=== PATIENT | male | born 1960 | race Caucasian/White ===

== ENCOUNTER 2017-03-22 21:07 | Inpatient (IN) | payer OTHER ==
[~2017-03-22] VITALS: Ht 172.7 cm; Wt 50.9 kg
[2017-03-22 21:07] VITALS: O2SAT 100
[2017-03-22] MEDS ORDERED: PROPOFOL 1000 MG/100 ML INJ 100 ML ONE (21:16)
[2017-03-22] MEDS ORDERED: ATROPINE SULFATE 1 MG/ML VIAL ONE (21:24)
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
[2017-03-22 21:30] LABS: I-STAT POTASSIUM 4.2 MMOL/L (3.5-4.9); I-STAT SODIUM 143 MMOL/L (138-146)
[2017-03-22 21:32] LABS: AUTOMATED NEUTROPHIL # 4.8 TH/MM3 (1.8-7.7); BASOPHIL % 0.6 % (0.0-2.0); EOSINOPHIL % 0.7 % (0.0-4.0); HEMATOCRIT 43.6 % (39.0-51.0); HEMO FLAGS DIFF FINAL; LYMPH % 25.3 % (9.0-44.0); LYMPHOCYTE # 1.8 TH/MM3 (1.0-4.8); MEAN CELL VOLUME 95.6 FL (80.0-100.0); MEAN CORPUSCULAR HEMOGLOBIN 32.2 PG (27.0-34.0); MEAN CORPUSCULAR HGB CONC 33.7 % (32.0-36.0); MONO % 8.1 % (0.0-8.0); NEUT % 65.3 % (16.0-70.0); PLATELET COUNT 116 TH/MM3 (150-450); RED BLOOD COUNT 4.56 MIL/MM3 (4.50-5.90); RED CELL DISTRIBUTION WIDTH 14.7 % (11.6-17.2); WHITE BLOOD COUNT 7.3 TH/MM3 (4.0-11.0)
[2017-03-22 21:40] VITALS: O2SAT 100
[2017-03-22 21:40] LABS: PROTHROMBIN TIME - PATIENT 11.6 SEC (9.8-11.6)
[2017-03-22] MEDS ORDERED: LIDOCAINE HCL 1% PF 2 ML VIAL ONE (21:48)
[2017-03-22 21:49] LABS: ALCOHOL LESS THAN 3 MG/DL (0-5)
[2017-03-22] MEDS ORDERED: IOHEXOL 350 MG/ML 10 ML VIAL (for RAD DIAG) IVCONTRAST ONE (21:55)
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
[2017-03-22] MEDS ORDERED: DIPHTH/TETANUS/ACEL PERTUSSIS (BOOSTER) 0.5 ML VIAL/PFS IM ONE (22:10)
[2017-03-22] MEDS ORDERED: ceFAZolin 2 GM PREMIX 50 ML IV STA (22:10)
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
[2017-03-22] MEDS ORDERED: SODIUM CHLOR 0.9% 1000 ML INJ 1,000 ML IV ONE (22:15)
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
[2017-03-22 22:37] VITALS: O2SAT 100
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
--- NOTE | 2017-03-22 22:44 | RADRPT ---
EXAM DATE/TIME: 03/22/2017 22:16 [facility] COMPARISON: No previous studies available for comparison. INDICATIONS : Post chest tube placement. MEDICAL HISTORY : None. SURGICAL HISTORY : None. ENCOUNTER: Initial ACUITY: 1 day PAIN SCORE: Non-responsive. LOCATION: Right chest FINDINGS: Right-sided chest tube present. No pneumothorax identified. Right lung apex is clipped. Multiple righ t rib fractures. No significant effusion. Endotracheal tube in satisfactory position. CONCLUSION: 1. Right chest tube present and no pneumothorax identified. Lung apices are clipped. Endotracheal tub e in satisfactory position. Tyson Multani MD on March 22, 2017 at 22:42 Board Certified Radiologist. This report was verified electronically.
[2017-03-22] MEDS ORDERED: MAGNESIUM HYDROXIDE SUSP 30 ML CUP PO PRN (22:45)
[2017-03-22] MEDS ORDERED: CHLORHEXIDINE GLUCONATE 2 % 1 PACK (2 CLOTHS) TOP PRN (22:45)
[2017-03-22] MEDS ORDERED: fentaNYL DRIP 250 ML IV PRN (22:45)
[2017-03-22] MEDS ORDERED: PROPOFOL 1000 MG/100 ML INJ 100 ML IV PRN (22:45)
[2017-03-22] MEDS ORDERED: MISCELLANEOUS NURSING INFORMATION XX SCH (22:45)
--- NOTE | 2017-03-22 22:56 | PD.PROCEDR ---
Procedure Note Procedure preop dx-complex open wound left supraorbital 8x1.5cm postop dx-same procedure- closure in layers left supraorbital area was sterilely prepped and draped.Wound closed in layers with 3-0 vicryl ,3-0 nylon and 4-0 nylon. Lashell Trevino MD Mar 22, 2017 22:56
[2017-03-22 23:00] VITALS: BP 175/70; PULSE 57; PULSE 63; RESP 16; TEMP 97.5; O2SAT 100
--- NOTE | 2017-03-22 23:00 | PD.OP ---
Operative Report PTX right Postoperative Diagnosis: PTX right Procedure: Right Chest tube thoracostomy Anesthesia: fentanyl;/propofol Surgeon: Lashell Trevino Sole Rounding Machine Operator(s): none Operation and Findings: Right CW sterilely prepped and draped.5th ICR incision placed-dissection to rib.Pleural space entered bluntly superior to rib.[address] inserted-secured to skin with 0-silk.CXR confirms good position. Lashell Trevino MD Mar 22, 2017 23:00
[2017-03-22 23:22] LABS: BLOOD GAS BASE EXCESS -6.1 mmol/L (-2-2); BLOOD GAS CARBOXYHEMOGLOBIN 1.7 % (0-4); BLOOD GAS HCO3 18 mmol/L (22-26); BLOOD GAS O2 HGB SATURATION 97 % (90-100); BLOOD GAS OXYGEN CONTENT 17.4 Vol % (12.0-20.0); BLOOD GAS PCO2 30 mmHg (38-42); BLOOD GAS PO2 227 mmHg (61-120); BLOOD GAS TOTAL HGB 12.4 G/DL (12.0-16.0); CRITICAL VALUE NO; OXYGEN DEVICE VENTILATOR; TEMP CORR TO 98.6
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
[2017-03-22 23:23] LABS: DRAW SITE LT RADIAL; FIO2 50 %; NUMBER OF ARTERIAL PUNCTURES 1; STAT YES; ULNAR PULSE PRESENT; VENT SETTINGS SEE COMMENTS
[2017-03-23] VITALS (29 sets, daily range): BP systolic 90–139; BP diastolic 49–79; PULSE 46–76; RESP 15–20; TEMP 95.5–99.3; O2SAT 100
[2017-03-23] MEDS: SODIUM CHLOR 0.9% 1000 ML INJ 1,000 ML IV SCH ×3 (00:31→19:00)
[2017-03-23] MEDS: fentaNYL 2,500 MCG/NS 250 ML IV PRN (01:06)
[2017-03-23] MEDS: PROPOFOL 1000 MG/100 ML IV PRN ×2 (03:41→16:00)
[2017-03-23] MEDS: CHLORHEXIDINE GLUCONATE 2 % 1 PACK (2 CLOTHS) TOP SCH (03:42)
[2017-03-23 05:51] LABS: AUTOMATED NEUTROPHIL # 10.4 TH/MM3 (1.8-7.7); BASOPHIL # 0.1 TH/MM3 (0-0.2); BASOPHIL % 0.4 % (0.0-2.0); EOSINOPHIL % 0.3 % (0.0-4.0); HEMATOCRIT 37.6 % (39.0-51.0); INTERNATIONAL NORMALIZED RATIO 1.1 RATIO; LYMPH % 8.9 % (9.0-44.0); LYMPHOCYTE # 1.1 TH/MM3 (1.0-4.8); MEAN CELL VOLUME 98.2 FL (80.0-100.0); MEAN CORPUSCULAR HEMOGLOBIN 31.7 PG (27.0-34.0); MEAN CORPUSCULAR HGB CONC 32.3 % (32.0-36.0); NEUT % 81.4 % (16.0-70.0); PLATELET COUNT 96 TH/MM3 (150-450); PROTHROMBIN TIME - PATIENT 11.9 SEC (9.8-11.6); RED BLOOD COUNT 3.82 MIL/MM3 (4.50-5.90); RED CELL DISTRIBUTION WIDTH 15.2 % (11.6-17.2); WHITE BLOOD COUNT 12.8 TH/MM3 (4.0-11.0)
[2017-03-23 06:01] LABS: HEMO FLAGS AUTO DIFF
[2017-03-23 06:08] LABS: BICARBONATE 20.9 MEQ/L (21.0-32.0); POTASSIUM 3.9 MEQ/L (3.5-5.1)
--- NOTE | 2017-03-23 06:18 | RADRPT ---
EXAM DATE/TIME: 03/23/2017 04:55 [facility] COMPARISON: CHEST SINGLE AP, March 22, 2017, 22:16. INDICATIONS : Shortness of breath. MEDICAL HISTORY : None. SURGICAL HISTORY : None. ENCOUNTER: Subsequent ACUITY: 2 days PAIN SCORE: Non-responsive. LOCATION: Bilateral chest FINDINGS: Stable ETT, suction type NGT, and right apical chest tube. No significant pneumothorax. Multiple righ t-sided rib fractures again noted. Cardiomediastinal are stable. Remainder of the exam is unchanged. CONCLUSION: 1. Stable ETT and NGT. 2. Stable right apical chest tube without significant pneumothorax. 3. No significant interval change. Rafy Estrada MD on March 23, 2017 at 6:15 Board Certified Radiologist. This report was verified electronically.
[2017-03-23] MEDS ORDERED: POTASSIUM PHOSPHATE MONOBASIC 500 MG TAB PO/TUBE PRN (07:00)
[2017-03-23] MEDS ORDERED: RESP: ALBUTEROL 2.5 MG/IPRATROPIUM 0.5 MG NEB (PRN) INH (07:00)
[2017-03-23] MEDS ORDERED: POTASSIUM CHLORIDE 25 MEQ EFFERVESCENT TAB PO PRN (07:00)
[2017-03-23] MEDS ORDERED: POTASSIUM PHOSPHATE INJ 30 MMOL in SODIUM CHLOR 0.9% 250 ML INJ 250 ML IV PRN (07:00)
[2017-03-23] MEDS ORDERED: MAGNESIUM SULFATE INJ 4 GM in SODIUM CHLORIDE 0.9% INJ 92 ML IV PRN (07:00)
[2017-03-23] MEDS ORDERED: POTASSIUM CHLOR 40 MEQ PREMIX 100 ML IV PRN ×2 (07:00)
[2017-03-23] MEDS ORDERED: SODIUM PHOSPHATE INJ 30 MMOL in SODIUM CHLOR 0.9% 250 ML INJ 240 ML IV PRN (07:00)
[2017-03-23] MEDS ORDERED: MAGNESIUM OXIDE 400 MG TAB PO PRN (07:00)
[2017-03-23] MEDS ORDERED: POTASSIUM PHOSPHATE MONOBASIC 500 MG TAB PO PRN (07:00)
[2017-03-23] MEDS ORDERED: MAGNESIUM SULFATE INJ 2 GM in SODIUM CHLORIDE 0.9% INJ 96 ML IV PRN (07:00)
[2017-03-23 08:14] LABS: SCAN/DIFF AUTO DIFF CONFIRMED
[2017-03-23] MEDS: PANTOPRAZOLE SODIUM 40 MG VIAL IV SCH (08:18)
[2017-03-23] MEDS: DOCUSATE SODIUM 50 MG/SENNA 8.6 MG TAB PO SCH ×2 (08:18→21:17)
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
[2017-03-23] MEDS: CHLORHEXIDINE 0.12% (ORAL KIT) 15 ML CUP MT SCH ×2 (08:58→20:52)
[2017-03-23] MEDS: RESP: ALBUTEROL 2.5 MG/IPRATROPIUM 0.5 MG NEB (SCH) INH ×3 (09:03→20:04)
[2017-03-23] MEDS ORDERED: SODIUM CHLOR 0.9% 1000 ML INJ 1,000 ML IV ONE (09:30)
[2017-03-23] MEDS: METHOCARBAMOL 500 MG TAB PO SCH ×3 (10:30→19:06)
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
[2017-03-23] MEDS: BACITRACIN TOP OINT 15 GM TUBE TOPICAL SCH ×2 (12:50→21:17)
--- NOTE | 2017-03-23 14:04 | HHI.CCPN ---
Subjective 24 Hour Review/Hospital Course 03/23 multiple rib fx right 1-7,ptx,left facial fx,left ear avulsion,right occipital contusion GCS 10 T,purposeful CXR stable cr 1.7 likely baseline-will keep hydrated repeat CT head pending Objective Vital Signs Date Time Temp Pulse Resp B/P (MAP) Pulse Ox O2 Delivery O2 Flow Rate FiO2 03/23/17 12:00 57 03/23/17 12:00 100 45 03/23/17 10:00 99.0 16 127/74 (91) 03/23/17 07:00 Mechanical Ventilator 03/22/17 21:07 15.00 Intake and Output 03/23/17 03/23/17 03/24/17 08:00 16:00 00:00 Intake Total 1467.6 ml 1000 ml Output Total 462 ml Balance 1005.6 ml 1000 ml Result Diagram: 03/23/17 0502 03/23/17 0502 Other Results Laboratory Tests Test 03/22/17 23:01 Blood Gas Puncture Site LT RADIAL Blood Gas Patient Temperature 98.6 Blood Gas HCO3 18 mmol/L (22-26) Blood Gas Base Excess -6.1 mmol/L (-2-2) Blood Gas Oxygen Saturation 97 % (90-100) Arterial Blood pH 7.40 (7.380-7.420) Arterial Blood Partial Pressure CO2 30 mmHg (38-42) Arterial Blood Partial Pressure O2 227 mmHg (61-120) Arterial Blood Oxygen Content 17.4 Vol % (12.0-20.0) Arterial Blood Carboxyhemoglobin 1.7 % (0-4) Arterial Blood Methemoglobin 1.0 % (0-2) Blood Gas Hemoglobin 12.4 G/DL (12.0-16.0) Oxygen Delivery Device VENTILATOR Blood Gas Ventilator Setting SEE COMMENTS Blood Gas Inspired Oxygen 50 % Imaging Last 24 hours Impressions Chest X-Ray 03/23/17 0000 Signed Impressions: Service Date/Time: Thursday, March 23, 2017 04:55 - CONCLUSION: 1. Stable ETT and NGT. 2. Stable right apical chest tube without significant pneumothorax. 3. No significant interval change. Rafy Estrada MD Thoracic Spine CT 03/22/172108 Signed Impressions: Service Date/Time: Wednesday, March 22, 2017 21:44 - CONCLUSION: 1. Negative for thoracic spine traumatic injury. Moderate degenerative disc disease. Tyson Multani MD Pelvis X-Ray 03/22/172108 Signed Impressions: Service Date/Time: Wednesday, March 22, 2017 21:00 - CONCLUSION: 1. No acute findings. Tyson Multani MD Maxillofacial CT 03/22/172108 Signed Impressions: Service Date/Time: Wednesday, March 22, 2017 21:32 - CONCLUSION: 1. Fractures of bilateral nasal bones, left superior orbit, left medial orbital wall with nasal septum with fluid or hemorrhage in the paranasal sinuses. Left frontal sinus fracture inferiorly. Tyson Multani MD Lumbar Spine CT 03/22/172108 Signed Impressions: Service Date/Time: Wednesday, March 22, 2017 21:44 - CONCLUSION: 1. No acute fracture. Mild to moderate degenerative disc disease as above. Tyson Multani MD Head CT 03/22/172108 Signed Impressions: Service Date/Time: Wednesday, March 22, 2017 21:32 - CONCLUSION: 1. Small amount of acute hemorrhage within an area of encephalomalacia in the right occipital lobe. Small bifrontal subdural hygromas with questionable trace acute hemorrhage in the left frontal subdural region. Tyson Multani MD Chest X-Ray 03/22/172108 Signed Impressions: Service Date/Time: Wednesday, March 22, 2017 21:00 - CONCLUSION: 1. Multiple right rib fractures with small right pneumothorax. Endotracheal tube in satisfactory position. Tyson Multani MD Chest CT 03/22/172108 Signed Impressions: Service Date/Time: Wednesday, March 22, 2017 21:44 - CONCLUSION: 1. Fractures of the right first through seventh ribs with a small to moderate right pneumothorax. Distal right clavicle fracture. Endotracheal tube in satisfactory position. Small right lung contusions. Negative traumatic aortic injury. Tyson Multani MD Cervical Spine CT 03/22/172108 Signed Impressions: Service Date/Time: Wednesday, March 22, 2017 21:32 - CONCLUSION: 1. Moderate degenerative change. No acute bony abnormalities. Right-sided pneumothorax. Tyson Multani MD Abdomen/Pelvis CT 03/22/172108 Signed Impressions: Service Date/Time: Wednesday, March 22, 2017 21:44 - CONCLUSION: 1. Right pneumothorax. No acute traumatic injury identified within the abdomen and pelvis. 2. 3.4 cm infrarenal abdominal aortic aneurysm. Tyson Multani MD Exam LUMBER STRAIGHTENED GCS 10 T Hemodynamic/Cardiac stable Pulmonary/Respiratory mechanical ventilation Abdomen/GI Nutrition soft Urinary Catheter Assessment Urinary Catheter: Yes Rodriguez insert reason: Measure Accurate Output Vascular Central Line Catheter Vascular Central Line Catheter: No Assessment and Plan Plan Start to wean mechanical ventilation start tube feeds mechanical DVT prophylaxis for now until occipital contusion stable OFMS consult for facial fractures pain control Lashell Trevino MD Mar 23, 2017 14:04
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
--- NOTE | 2017-03-23 18:18 | RADRPT ---
EXAM DATE/TIME: 03/23/2017 17:40 [facility] COMPARISON: CT BRAIN W/O CONTRAST, March 22, 2017, 21:32. INDICATIONS : Follow intracranial hemorrhage. RADIATION DOSE: 47.29 CTDIvol (mGy) MEDICAL HISTORY : Non-responsive. SURGICAL HISTORY : Non-responsive. ENCOUNTER: Subsequent ACUITY: 1 day PAIN SCALE: Non-responsive LOCATION: cranial TECHNIQUE: Multiple contiguous axial images were obtained of the head. Using automated exposure control and adj ustment of the mA and/or kV according to patient size, radiation dose was kept as low as reasonably a chievable to obtain optimal diagnostic quality images. DICOM format image data is available electro nically for review and comparison. FINDINGS: Compare March 22. There is a small amount hemorrhage in an area of encephalomalacia in the right p arietal occipital region. There is a new small 5 mm hemorrhage in the right parietal lobe. Bifrontal subdural hygromas are stable with questionable trace acute hemorrhage in the left frontal region. No mass effect or shift. Nasal bone fractures. CONCLUSION: 1. Small hemorrhage in right occipital region in area of encephalomalacia is stable. There is a new s mall 5 mm hemorrhage in the right parietal lobe also in within an area of encephalomalacia. Bifrontal subdural hygromas with trace hemorrhage on the left is stable. No new mass effect or shift. Tyson Multani MD on March 23, 2017 at 18:14 Board Certified Radiologist. This report was verified electronically.
[2017-03-23] MEDS ORDERED: DEXTROSE 50% IN WATER 50 ML SYRINGE ONE (20:14)
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
[2017-03-23] MEDS ORDERED: DEXTROSE 50% IN WATER 50 ML VIAL(D50) IV PRN (21:15)
[2017-03-23] MEDS ORDERED: GLUCAGON 1 MG/ML VIAL OTHER PRN (21:15)
[2017-03-24] VITALS (29 sets, daily range): BP systolic 97–136; BP diastolic 53–76; PULSE 54–82; RESP 15–16; TEMP 96.1–99.3; O2SAT 67–100
[2017-03-24] MEDS: PROPOFOL 1000 MG/100 ML IV PRN ×2 (00:37→20:33)
[2017-03-24] MEDS: SODIUM CHLOR 0.9% 1000 ML INJ 1,000 ML IV SCH ×4 (00:37→22:50)
[2017-03-24] MEDS: RESP: ALBUTEROL 2.5 MG/IPRATROPIUM 0.5 MG NEB (SCH) INH ×4 (01:21→19:36)
[2017-03-24] MEDS: METHOCARBAMOL 500 MG TAB PO SCH ×3 (01:34→17:32)
[2017-03-24] MEDS: CHLORHEXIDINE GLUCONATE 2 % 1 PACK (2 CLOTHS) TOP SCH (03:15)
[2017-03-24 04:05] LABS: AUTOMATED NEUTROPHIL # 5.3 TH/MM3 (1.8-7.7); BASOPHIL % 0.5 % (0.0-2.0); EOSINOPHIL # 0.1 TH/MM3 (0-0.4); EOSINOPHIL % 1.2 % (0.0-4.0); HEMATOCRIT 31.5 % (39.0-51.0); LYMPH % 9.1 % (9.0-44.0); LYMPHOCYTE # 0.6 TH/MM3 (1.0-4.8); MEAN CELL VOLUME 97.6 FL (80.0-100.0); MEAN CORPUSCULAR HEMOGLOBIN 32.7 PG (27.0-34.0); MEAN CORPUSCULAR HGB CONC 33.5 % (32.0-36.0); MONO % 9.6 % (0.0-8.0); NEUT % 79.6 % (16.0-70.0); PLATELET COUNT 67 TH/MM3 (150-450); RED BLOOD COUNT 3.22 MIL/MM3 (4.50-5.90); RED CELL DISTRIBUTION WIDTH 14.7 % (11.6-17.2); WHITE BLOOD COUNT 6.6 TH/MM3 (4.0-11.0)
[2017-03-24 04:09] LABS: HEMO FLAGS AUTO DIFF
[2017-03-24 04:43] LABS: ALKALINE PHOSPHATASE 49 U/L (45-117); ALT (GPT) 19 U/L (12-78); ANION GAP 5 MEQ/L (5-15); AST (GOT) 23 U/L (15-37); BICARBONATE 24.4 MEQ/L (21.0-32.0); BLOOD UREA NITROGEN 33 MG/DL (7-18); CHLORIDE 117 MEQ/L (98-107); GLOMERULAR FILTRATION RATE 66 ML/MIN (>89); POTASSIUM 3.6 MEQ/L (3.5-5.1); SODIUM (NA) 146 MEQ/L (136-145); TOTAL BILIRUBIN ADULT 0.2 MG/DL (0.2-1.0)
--- NOTE | 2017-03-24 04:53 | RADRPT ---
EXAM DATE/TIME: 03/24/2017 03:52 [facility] COMPARISON: CHEST SINGLE AP, March 23, 2017, 4:55. INDICATIONS : Short of breath. MEDICAL HISTORY : None. SURGICAL HISTORY : None. ENCOUNTER: Subsequent ACUITY: 2 days PAIN SCORE: Non-responsive. LOCATION: Bilateral chest FINDINGS: Stable ETT, NGT, and right sided chest tube. Multiple right-sided rib fractures again noted. No signi ficant pneumothorax. No significant focal pleural or parenchymal opacities. Cardiomegaly some contour s are within normal limits. CONCLUSION: 1. Stable ETT and NGT. 2. Stable right apical chest tube without significant pneumothorax. 3. No significant interval change. Rafy Estrada MD on March 24, 2017 at 4:49 Board Certified Radiologist. This report was verified electronically.
[2017-03-24 05:30] LABS: BLOOD GAS BASE EXCESS -3.3 mmol/L (-2-2); BLOOD GAS CARBOXYHEMOGLOBIN 0.8 % (0-4); BLOOD GAS HCO3 22 mmol/L (22-26); BLOOD GAS METHEMOGLOBIN 1.1 % (0-2); BLOOD GAS O2 HGB SATURATION 97 % (90-100); BLOOD GAS OXYGEN CONTENT 14.1 Vol % (12.0-20.0); BLOOD GAS PCO2 45 mmHg (38-42); BLOOD GAS PO2 145 mmHg (61-120); BLOOD GAS TOTAL HGB 10.1 G/DL (12.0-16.0); CRITICAL VALUE NO; DRAW SITE RT FEMORAL; FIO2 30 %; NUMBER OF ARTERIAL PUNCTURES 1; OXYGEN DEVICE VENTILATOR; STAT NO; TEMP CORR TO 98.6; VENT SETTINGS PRVC/AC
[2017-03-24] MEDS: INSULIN NovoLIN REGULAR SUPPLEMENTAL SCALE SQ SCH ×4 (06:05→21:00)
[2017-03-24 06:08] LABS: PLATELET ESTIMATE SMEAR LOW (NORMAL); PLATELET MORPHOLOGY NORMAL (NORMAL); SCAN/DIFF AUTO DIFF CONFIRMED
[2017-03-24] MEDS: CHLORHEXIDINE 0.12% (ORAL KIT) 15 ML CUP MT SCH ×2 (08:56→20:34)
[2017-03-24] MEDS: PANTOPRAZOLE SODIUM 40 MG VIAL IV SCH (09:00)
[2017-03-24] MEDS: BACITRACIN TOP OINT 15 GM TUBE TOPICAL SCH ×2 (09:01→20:33)
[2017-03-24] MEDS: DOCUSATE SODIUM 50 MG/SENNA 8.6 MG TAB PO SCH ×2 (09:01→20:34)
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
[2017-03-24] MEDS ORDERED: SODIUM CHLOR 0.9% 1000 ML INJ 1,000 ML IV ONE (10:00)
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
--- NOTE | 2017-03-24 12:41 | EKG ---
Date Performed: 03/24/2017 Time Performed: 10:46:01 PTAGE: 56 years EKG: Sinus rhythm NO PREVIOUS TRACING DOCTOR: Louie Mays Interpretating Date/Time 03/24/2017 12:39:43
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
[2017-03-24] MEDS: fentaNYL 2,500 MCG/NS 250 ML IV PRN (16:51)
[2017-03-25] VITALS (19 sets, daily range): BP systolic 89–99; BP diastolic 49–59; PULSE 72–90; RESP 15–18; TEMP 98.6–99.5; O2SAT 98–100
[2017-03-25] MEDS: METHOCARBAMOL 500 MG TAB PO SCH ×3 (00:10→17:19)
[2017-03-25] MEDS: RESP: ALBUTEROL 2.5 MG/IPRATROPIUM 0.5 MG NEB (SCH) INH ×4 (00:54→20:14)
[2017-03-25] MEDS: PROPOFOL 1000 MG/100 ML IV PRN ×2 (01:59→20:18)
[2017-03-25] MEDS: CHLORHEXIDINE GLUCONATE 2 % 1 PACK (2 CLOTHS) TOP SCH (04:00)
[2017-03-25 04:51] LABS: BLOOD GAS BASE EXCESS -1.4 mmol/L (-2-2); BLOOD GAS CARBOXYHEMOGLOBIN 0.8 % (0-4); BLOOD GAS HCO3 24 mmol/L (22-26); BLOOD GAS O2 HGB SATURATION 96 % (90-100); BLOOD GAS OXYGEN CONTENT 12.6 Vol % (12.0-20.0); BLOOD GAS PCO2 53 mmHg (38-42); BLOOD GAS PO2 106 mmHg (61-120); BLOOD GAS TOTAL HGB 9.2 G/DL (12.0-16.0); TEMP CORR TO 98.6
[2017-03-25 04:52] LABS: CRITICAL VALUE YES; OXYGEN DEVICE VENTILATOR
[2017-03-25 04:53] LABS: DRAW SITE RT FEMORAL; FIO2 30 %; NUMBER OF ARTERIAL PUNCTURES 1; STAT NO
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
[2017-03-25 05:55] LABS: AUTOMATED NEUTROPHIL # 5.7 TH/MM3 (1.8-7.7); BASOPHIL % 0.3 % (0.0-2.0); EOSINOPHIL # 0.1 TH/MM3 (0-0.4); EOSINOPHIL % 1.5 % (0.0-4.0); HEMATOCRIT 29.6 % (39.0-51.0); LYMPH % 10.7 % (9.0-44.0); LYMPHOCYTE # 0.8 TH/MM3 (1.0-4.8); MEAN CELL VOLUME 99.4 FL (80.0-100.0); MEAN CORPUSCULAR HEMOGLOBIN 32.5 PG (27.0-34.0); MEAN CORPUSCULAR HGB CONC 32.7 % (32.0-36.0); MONO % 8.6 % (0.0-8.0); NEUT % 78.9 % (16.0-70.0); PLATELET COUNT 61 TH/MM3 (150-450); RED BLOOD COUNT 2.98 MIL/MM3 (4.50-5.90); RED CELL DISTRIBUTION WIDTH 15.3 % (11.6-17.2); WHITE BLOOD COUNT 7.2 TH/MM3 (4.0-11.0)
[2017-03-25 06:00] LABS: HEMO FLAGS AUTO DIFF
[2017-03-25 06:22] LABS: ALKALINE PHOSPHATASE 51 U/L (45-117); ALT (GPT) 13 U/L (12-78); ANION GAP 5 MEQ/L (5-15); AST (GOT) 22 U/L (15-37); BICARBONATE 26.7 MEQ/L (21.0-32.0); BLOOD UREA NITROGEN 19 MG/DL (7-18); CHLORIDE 116 MEQ/L (98-107); GLOMERULAR FILTRATION RATE 109 ML/MIN (>89); POTASSIUM 3.7 MEQ/L (3.5-5.1); SODIUM (NA) 148 MEQ/L (136-145); TOTAL BILIRUBIN ADULT 0.2 MG/DL (0.2-1.0)
[2017-03-25] MEDS: INSULIN NovoLIN REGULAR SUPPLEMENTAL SCALE SQ SCH ×4 (06:23→21:00)
[2017-03-25 07:04] LABS: PLATELET ESTIMATE SMEAR LOW (NORMAL); PLATELET MORPHOLOGY NORMAL (NORMAL); SCAN/DIFF AUTO DIFF CONFIRMED
[2017-03-25] MEDS: CHLORHEXIDINE 0.12% (ORAL KIT) 15 ML CUP MT SCH ×2 (08:00→20:18)
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
[2017-03-25] MEDS: BACITRACIN TOP OINT 15 GM TUBE TOPICAL SCH ×2 (09:00→23:24)
[2017-03-25] MEDS: DOCUSATE SODIUM 50 MG/SENNA 8.6 MG TAB PO SCH ×2 (09:26→20:18)
[2017-03-25] MEDS: LACTULOSE SYRUP 20 GM/30 ML CUP PO SCH (09:26)
[2017-03-25] MEDS: PANTOPRAZOLE SODIUM 40 MG VIAL IV SCH (09:26)
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
[2017-03-25] MEDS: SODIUM CHLOR 0.9% 1000 ML INJ 1,000 ML IV SCH ×2 (11:00→20:18)
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
--- NOTE | 2017-03-25 12:34 | RADRPT ---
EXAM DATE/TIME: 03/25/2017 11:36 [facility] COMPARISON: No previous studies available for comparison. INDICATIONS : Right hand pain. MEDICAL HISTORY : None. SURGICAL HISTORY : None. ENCOUNTER: Initial ACUITY: 3 days PAIN SCORE: Non-responsive. LOCATION: Left hand FINDINGS: No definite fractures, or dislocations are identified. No definite lytic or sclerotic lesion is seen . CONCLUSION: Unremarkable study. Matthew Eaton MD on March 25, 2017 at 12:32 Board Certified Radiologist. This report was verified electronically.
[2017-03-25] MEDS: fentaNYL 2,500 MCG/NS 250 ML IV PRN (13:04)
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
[2017-03-25] MEDS: QUEtiapine FUMARATE 100 MG TAB PO SCH (14:49)
[2017-03-26] VITALS (17 sets, daily range): BP systolic 85–114; BP diastolic 52–71; PULSE 79–94; RESP 18; TEMP 98.9–99.7; O2SAT 96–100
[2017-03-26] MEDS: METHOCARBAMOL 500 MG TAB PO SCH ×3 (01:22→19:42)
[2017-03-26] MEDS: RESP: ALBUTEROL 2.5 MG/IPRATROPIUM 0.5 MG NEB (SCH) INH ×4 (03:36→20:00)
[2017-03-26] MEDS: CHLORHEXIDINE GLUCONATE 2 % 1 PACK (2 CLOTHS) TOP SCH (04:00)
[2017-03-26] MEDS: PROPOFOL 1000 MG/100 ML IV PRN (04:41)
[2017-03-26] MEDS: fentaNYL 2,500 MCG/NS 250 ML IV PRN ×2 (04:41→19:42)
[2017-03-26] MEDS: SODIUM CHLOR 0.9% 1000 ML INJ 1,000 ML IV SCH ×2 (04:41→14:40)
[2017-03-26 05:02] LABS: BLOOD GAS BASE EXCESS 0.9 mmol/L (-2-2); BLOOD GAS CARBOXYHEMOGLOBIN 1.4 % (0-4); BLOOD GAS HCO3 26 mmol/L (22-26); BLOOD GAS METHEMOGLOBIN 0.8 % (0-2); BLOOD GAS O2 HGB SATURATION 94 % (90-100); BLOOD GAS OXYGEN CONTENT 12.8 Vol % (12.0-20.0); BLOOD GAS PCO2 49 mmHg (38-42); BLOOD GAS PO2 77 mmHg (61-120); BLOOD GAS TOTAL HGB 9.6 G/DL (12.0-16.0); CRITICAL VALUE NO; DRAW SITE RT RADIAL; FIO2 30 %; NUMBER OF ARTERIAL PUNCTURES 1; OXYGEN DEVICE VENTILATOR; STAT NO; TEMP CORR TO 98.6; ULNAR PULSE PRESENT; VENT SETTINGS PRVC18/500/1.0/+5
--- NOTE | 2017-03-26 05:16 | RADRPT ---
EXAM DATE/TIME: 03/26/2017 04:19 [facility] COMPARISON: CHEST SINGLE AP, March 25, 2017, 3:58. INDICATIONS : Short of breath. MEDICAL HISTORY : None. SURGICAL HISTORY : None. ENCOUNTER: Subsequent ACUITY: 4 - 6 days PAIN SCORE: Non-responsive. LOCATION: Bilateral chest FINDINGS: Rib fractures and a chest tube again seen on the right. A tiny apical pneumothorax can be seen. Study was obtained supine. Very mild left base infiltrate developing. I don't see a pleural effusion. No left pneumothorax. Heart size stable, within normal limits. Endotracheal tube tip is approximately 3.5 cm above the brent. There is a nasogastric tube with tip in the stomach. CONCLUSION: 1. Mild left base consolidation developing. 2. Tiny right apical pneumothorax. Rib fractures and a right chest tube are again noted. Tobi Chinchilla MD on March 26, 2017 at 5:13 Board Certified Radiologist. This report was verified electronically.
[2017-03-26 05:26] LABS: AUTOMATED NEUTROPHIL # 6.8 TH/MM3 (1.8-7.7); BASOPHIL % 0.6 % (0.0-2.0); EOSINOPHIL # 0.2 TH/MM3 (0-0.4); EOSINOPHIL % 2.5 % (0.0-4.0); HEMATOCRIT 33.1 % (39.0-51.0); LYMPH % 9.6 % (9.0-44.0); LYMPHOCYTE # 0.8 TH/MM3 (1.0-4.8); MEAN CORPUSCULAR HEMOGLOBIN 32.2 PG (27.0-34.0); MEAN CORPUSCULAR HGB CONC 32.2 % (32.0-36.0); MONO % 7.7 % (0.0-8.0); NEUT % 79.6 % (16.0-70.0); PLATELET COUNT 76 TH/MM3 (150-450); RED BLOOD COUNT 3.31 MIL/MM3 (4.50-5.90); RED CELL DISTRIBUTION WIDTH 15.2 % (11.6-17.2); WHITE BLOOD COUNT 8.6 TH/MM3 (4.0-11.0)
[2017-03-26 05:54] LABS: ANION GAP 7 MEQ/L (5-15); AST (GOT) 18 U/L (15-37); BICARBONATE 23.9 MEQ/L (21.0-32.0); BLOOD UREA NITROGEN 13 MG/DL (7-18); CHLORIDE 117 MEQ/L (98-107); GLOMERULAR FILTRATION RATE 129 ML/MIN (>89); SODIUM (NA) 148 MEQ/L (136-145)
[2017-03-26 05:57] LABS: ALKALINE PHOSPHATASE 53 U/L (45-117); ALT (GPT) 12 U/L (12-78); TOTAL BILIRUBIN ADULT 0.5 MG/DL (0.2-1.0)
[2017-03-26 06:30] LABS: HEMO FLAGS AUTO DIFF
[2017-03-26] MEDS: INSULIN NovoLIN REGULAR SUPPLEMENTAL SCALE SQ SCH ×4 (07:00→21:00)
[2017-03-26] MEDS ORDERED: BISACODYL 10 MG SUPP RECTAL ONE (07:45)
[2017-03-26 08:28] LABS: PLATELET ESTIMATE SMEAR LOW (NORMAL); PLATELET MORPHOLOGY NORMAL (NORMAL)
[2017-03-26 08:29] LABS: SCAN/DIFF AUTO DIFF CONFIRMED
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
[2017-03-26] MEDS: PANTOPRAZOLE SODIUM 40 MG VIAL IV SCH (09:47)
[2017-03-26] MEDS: DOCUSATE SODIUM 50 MG/SENNA 8.6 MG TAB PO SCH ×2 (09:47→19:42)
[2017-03-26] MEDS: QUEtiapine FUMARATE 100 MG TAB PO SCH (09:47)
[2017-03-26] MEDS: MAGNESIUM HYDROXIDE SUSP 30 ML CUP PO SCH ×2 (09:47→19:42)
[2017-03-26] MEDS: LACTULOSE SYRUP 20 GM/30 ML CUP PO SCH (09:47)
[2017-03-26] MEDS: CHLORHEXIDINE 0.12% (ORAL KIT) 15 ML CUP MT SCH ×2 (09:48→19:42)
[2017-03-26] MEDS: DEXTROSE 50% IN WATER 50 ML SYRINGE IV PRN (11:09)
[2017-03-26] MEDS: BACITRACIN TOP OINT 15 GM TUBE TOPICAL SCH ×2 (11:14→21:28)
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
--- NOTE | 2017-03-26 13:54 | RADRPT ---
EXAM DATE/TIME: 03/26/2017 13:03 [facility] COMPARISON: No previous studies available for comparison. INDICATIONS : Left elbow pain. MEDICAL HISTORY : None. SURGICAL HISTORY : None. ENCOUNTER: Subsequent ACUITY: 4 - 6 days PAIN SCORE: Non-responsive. LOCATION: Left Elbow FINDINGS: 3 views left elbow. Bone alignment within normal limits. 1.3 cm ossicle is seen anteriorly on the lat eral view no definite joint effusion. Evaluation for joint narrowing is limited due to the obliquity of the views. CONCLUSION: 1.3 cm ossicle seen anteriorly at the elbow. This finding is nonspecific and could represent arthriti c change or age-indeterminate fracture. Alignment within normal limits. Sensitivity and specificity o f the examination is decreased due to the oblique/non-standard views. Solomon Cardenas MD on March 26, 2017 at 13:47 Board Certified Radiologist. This report was verified electronically.
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
[2017-03-27] VITALS (18 sets, daily range): BP systolic 102–145; BP diastolic 51–72; PULSE 82–116; RESP 5–22; TEMP 99–99.9; O2SAT 96–100
[2017-03-27] MEDS: METHOCARBAMOL 500 MG TAB PO SCH ×3 (00:28→18:00)
[2017-03-27] MEDS: SODIUM CHLOR 0.9% 1000 ML INJ 1,000 ML IV SCH ×2 (00:29→09:30)
[2017-03-27] MEDS: DEXTROSE 50% IN WATER 50 ML SYRINGE IV PRN (02:30)
[2017-03-27] MEDS: RESP: ALBUTEROL 2.5 MG/IPRATROPIUM 0.5 MG NEB (SCH) INH ×5 (03:53→19:59)
[2017-03-27] MEDS: CHLORHEXIDINE GLUCONATE 2 % 1 PACK (2 CLOTHS) TOP SCH (04:00)
--- NOTE | 2017-03-27 04:33 | RADRPT ---
EXAM DATE/TIME: 03/27/2017 03:32 [facility] COMPARISON: CHEST SINGLE AP, March 26, 2017, 4:19. INDICATIONS : Shortness of breath. MEDICAL HISTORY : None. SURGICAL HISTORY : None. ENCOUNTER: Subsequent ACUITY: 4 - 6 days PAIN SCORE: Non-responsive. LOCATION: Bilateral chest FINDINGS: Bibasilar consolidation seen, new on the right and modestly worse on the left. No large effusion. Rig ht chest tube remains in place. No perceptible pneumothorax today. Endotracheal tube tip is approximately 3 cm above the brent. Nasogastric tube is coiled in the stoma ch. Right rib fractures are again noted. CONCLUSION: 1. Bibasilar airspace opacities, both sides slightly worse in the interim. 2. Right rib fractures with a chest tube again noted. No perceptible pneumothorax. Tobi Chinchilla MD on March 27, 2017 at 4:29 Board Certified Radiologist. This report was verified electronically.
[2017-03-27 05:57] LABS: BLOOD GAS BASE EXCESS 1.6 mmol/L (-2-2); BLOOD GAS CARBOXYHEMOGLOBIN 1.6 % (0-4); BLOOD GAS HCO3 27 mmol/L (22-26); BLOOD GAS METHEMOGLOBIN 0.9 % (0-2); BLOOD GAS O2 HGB SATURATION 94 % (90-100); BLOOD GAS OXYGEN CONTENT 13.1 Vol % (12.0-20.0); BLOOD GAS PCO2 48 mmHg (38-42); BLOOD GAS PO2 86 mmHg (61-120); BLOOD GAS TOTAL HGB 9.8 G/DL (12.0-16.0); CRITICAL VALUE NO; DRAW SITE RT RADIAL; FIO2 30 %; NUMBER OF ARTERIAL PUNCTURES 1; OXYGEN DEVICE VENTILATOR; STAT NO; TEMP CORR TO 98.6; ULNAR PULSE PRESENT; VENT SETTINGS CPAP/5/+5
[2017-03-27 07:26] LABS: AUTOMATED NEUTROPHIL # 5.4 TH/MM3 (1.8-7.7); BASOPHIL % 0.3 % (0.0-2.0); EOSINOPHIL # 0.1 TH/MM3 (0-0.4); EOSINOPHIL % 1.6 % (0.0-4.0); HEMATOCRIT 31.8 % (39.0-51.0); LYMPH % 5.3 % (9.0-44.0); LYMPHOCYTE # 0.3 TH/MM3 (1.0-4.8); MEAN CELL VOLUME 98.2 FL (80.0-100.0); MEAN CORPUSCULAR HEMOGLOBIN 31.8 PG (27.0-34.0); MEAN CORPUSCULAR HGB CONC 32.3 % (32.0-36.0); MONO % 10.1 % (0.0-8.0); NEUT % 82.7 % (16.0-70.0); PLATELET COUNT 80 TH/MM3 (150-450); RED BLOOD COUNT 3.23 MIL/MM3 (4.50-5.90); RED CELL DISTRIBUTION WIDTH 14.7 % (11.6-17.2); WHITE BLOOD COUNT 6.5 TH/MM3 (4.0-11.0)
[2017-03-27 07:35] LABS: HEMO FLAGS AUTO DIFF
[2017-03-27 07:58] LABS: BICARBONATE 27.2 MEQ/L (21.0-32.0); CALCIUM-PROTEIN CORRECTED 8.1 MG/DL (8.5-10.1); POTASSIUM 3.9 MEQ/L (3.5-5.1); TOTAL BILIRUBIN ADULT 0.5 MG/DL (0.2-1.0)
[2017-03-27] MEDS: CHLORHEXIDINE 0.12% (ORAL KIT) 15 ML CUP MT SCH ×2 (08:00→21:40)
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
[2017-03-27] MEDS: QUEtiapine FUMARATE 100 MG TAB PO SCH (08:44)
[2017-03-27] MEDS: LACTULOSE SYRUP 20 GM/30 ML CUP PO SCH (08:44)
[2017-03-27] MEDS: PANTOPRAZOLE SODIUM 40 MG VIAL IV SCH (08:44)
[2017-03-27] MEDS: MAGNESIUM HYDROXIDE SUSP 30 ML CUP PO SCH ×2 (08:44→20:00)
[2017-03-27] MEDS: DOCUSATE SODIUM 50 MG/SENNA 8.6 MG TAB PO SCH ×2 (08:44→21:39)
[2017-03-27] MEDS: BACITRACIN TOP OINT 15 GM TUBE TOPICAL SCH ×2 (08:45→21:39)
[2017-03-27] MEDS: fentaNYL 2,500 MCG/NS 250 ML IV PRN (09:30)
[2017-03-27] MEDS: ARTIFICIAL TEARS OPTH SOLN 15 ML BTL EACH EYE SCH ×2 (10:00→18:00)
[2017-03-27] MEDS ORDERED: fentaNYL DRIP 250 ML IV PRN (10:15)
[2017-03-27 10:20] LABS: BANDS 45 % (0-6); BASOPHILS 1 % (0-2); NEUTROPHIL # MANUAL DIFF 5.9 TH/MM3 (1.8-7.7); POLYS (SEG NEUTROPHILS) 45 % (16-70); WBC DIFF SAMPLE 100
[2017-03-27 10:21] LABS: PLATELET ESTIMATE SMEAR LOW (NORMAL); PLATELET MORPHOLOGY ENLARGED (NORMAL); SCAN/DIFF FINAL DIFF MANUAL
[2017-03-27 10:43] LABS: BLOOD GAS BASE EXCESS 1.4 mmol/L (-2-2); BLOOD GAS CARBOXYHEMOGLOBIN 1.7 % (0-4); BLOOD GAS HCO3 27 mmol/L (22-26); BLOOD GAS O2 HGB SATURATION 95 % (90-100); BLOOD GAS OXYGEN CONTENT 13.7 Vol % (12.0-20.0); BLOOD GAS PCO2 55 mmHg (38-42); BLOOD GAS PO2 96 mmHg (61-120); BLOOD GAS TOTAL HGB 10.2 G/DL (12.0-16.0); TEMP CORR TO 98.6
[2017-03-27 10:45] LABS: CRITICAL VALUE YES; DRAW SITE RT RADIAL; FIO2 30 %; NUMBER OF ARTERIAL PUNCTURES 1; OXYGEN DEVICE VENTILATOR; STAT NO; ULNAR PULSE PRESENT; VENT SETTINGS PEEP5/PS5
[2017-03-27] MEDS: INSULIN NovoLIN REGULAR SUPPLEMENTAL SCALE SQ SCH ×3 (12:00→22:30)
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
--- NOTE | 2017-03-27 21:37 | RADRPT ---
EXAM DATE/TIME: 03/27/2017 21:11 [facility] COMPARISON: CHEST SINGLE AP, March 27, 2017, 3:32. INDICATIONS : Shortness of breath. MEDICAL HISTORY : None. SURGICAL HISTORY : None. ENCOUNTER: Subsequent ACUITY: 4 - 6 days PAIN SCORE: Non-responsive. LOCATION: Right chest FINDINGS: A single view of the chest demonstrates interval removal of a right thoracostomy tube. Lung remains e xpanded without significant pneumothorax. Significant bilateral airspace disease with interval progression is noted. Endotracheal and nasogastric tubes remain in satisfactory position. Heart and mediastinum are stable. Multiple right rib fractures are again noted. CONCLUSION: 1. Status post removal of right chest tube without persistent or recurrent pneumothorax. 2. Increasing bilateral consolidating infiltrate. 3. Stable position of support devices. Maxi Peng MD on March 27, 2017 at 21:32 Board Certified Radiologist. This report was verified electronically.
[2017-03-27] MEDS: DEXMEDETOMIDINE 200 MCG in NS 48 ML IV PRN (22:39)
[2017-03-28] VITALS (19 sets, daily range): BP systolic 85–146; BP diastolic 49–82; PULSE 72–116; RESP 7–20; TEMP 99.7–100.9; O2SAT 91–98
[2017-03-28] MEDS: METHOCARBAMOL 500 MG TAB PO SCH ×3 (02:14→18:00)
[2017-03-28] MEDS: CHLORHEXIDINE GLUCONATE 2 % 1 PACK (2 CLOTHS) TOP SCH (02:15)
[2017-03-28] MEDS: ARTIFICIAL TEARS OPTH SOLN 15 ML BTL EACH EYE SCH ×3 (03:33→18:00)
[2017-03-28] MEDS: RESP: ALBUTEROL 2.5 MG/IPRATROPIUM 0.5 MG NEB (SCH) INH ×4 (03:51→19:34)
[2017-03-28] MEDS: DEXMEDETOMIDINE 200 MCG in NS 48 ML IV PRN ×6 (03:53→22:41)
[2017-03-28 04:40] LABS: BLOOD GAS BASE EXCESS 2.8 mmol/L (-2-2); BLOOD GAS CARBOXYHEMOGLOBIN 1.3 % (0-4); BLOOD GAS HCO3 28 mmol/L (22-26); BLOOD GAS METHEMOGLOBIN 0.6 % (0-2); BLOOD GAS O2 HGB SATURATION 96 % (90-100); BLOOD GAS PCO2 48 mmHg (38-42); BLOOD GAS PO2 100 mmHg (61-120); BLOOD GAS TOTAL HGB 8.8 G/DL (12.0-16.0); CRITICAL VALUE NO; DRAW SITE RT RADIAL; FIO2 50 %; NUMBER OF ARTERIAL PUNCTURES 1; OXYGEN DEVICE VENTILATOR; STAT NO; TEMP CORR TO 98.6; ULNAR PULSE PRESENT; VENT SETTINGS PRVC18/500/1.0/+8
[2017-03-28] MEDS: INSULIN NovoLIN REGULAR SUPPLEMENTAL SCALE SQ SCH ×3 (06:00→18:00)
--- NOTE | 2017-03-28 06:02 | RADRPT ---
EXAM DATE/TIME: 03/28/2017 04:12 [facility] COMPARISON: No previous studies available for comparison. INDICATIONS : Shortness of breath, possible pulmonary disease. MEDICAL HISTORY : None. SURGICAL HISTORY : None. ENCOUNTER: Subsequent ACUITY: 1 week PAIN SCORE: Non-responsive. LOCATION: Bilateral chest FINDINGS: A single view of the chest demonstrates endotracheal tube tip ends at this position. NG coiled in sto mach. Ilateral mostly basilar airspace consolidation similar to prior exam. Trace pleural fluid. No p neumothorax. Stable right sided rib fractures. CONCLUSION: 1. Relatively stable bilateral mostly basilar airspace consolidation the lungs since March 27. En dotracheal tube and nasogastric tube unchanged. Tyson Multani MD on March 28, 2017 at 5:59 Board Certified Radiologist. This report was verified electronically.
[2017-03-28 06:09] LABS: AST (GOT) 14 U/L (15-37); AUTOMATED NEUTROPHIL # 2.8 TH/MM3 (1.8-7.7); BASOPHIL % 0.3 % (0.0-2.0); CHLORIDE 113 MEQ/L (98-107); EOSINOPHIL % 0.2 % (0.0-4.0); GLOMERULAR FILTRATION RATE 161 ML/MIN (>89); HEMATOCRIT 29.5 % (39.0-51.0); LYMPH % 6.5 % (9.0-44.0); LYMPHOCYTE # 0.2 TH/MM3 (1.0-4.8); MEAN CELL VOLUME 98.4 FL (80.0-100.0); MEAN CORPUSCULAR HEMOGLOBIN 32.1 PG (27.0-34.0); MEAN CORPUSCULAR HGB CONC 32.6 % (32.0-36.0); PLATELET COUNT 61 TH/MM3 (150-450); POTASSIUM 3.9 MEQ/L (3.5-5.1); RED CELL DISTRIBUTION WIDTH 14.4 % (11.6-17.2); SODIUM (NA) 147 MEQ/L (136-145); WHITE BLOOD COUNT 3.4 TH/MM3 (4.0-11.0)
[2017-03-28 06:18] LABS: HEMO FLAGS AUTO DIFF
[2017-03-28 06:59] LABS: ALKALINE PHOSPHATASE 59 U/L (45-117); ALT (GPT) 10 U/L (12-78); ANION GAP 6 MEQ/L (5-15); BICARBONATE 27.9 MEQ/L (21.0-32.0); BLOOD UREA NITROGEN 16 MG/DL (7-18); TOTAL BILIRUBIN ADULT 0.5 MG/DL (0.2-1.0)
[2017-03-28] MEDS: DOCUSATE SODIUM 50 MG/SENNA 8.6 MG TAB PO SCH ×2 (07:28→19:30)
[2017-03-28] MEDS: PANTOPRAZOLE SODIUM 40 MG VIAL IV SCH (07:28)
[2017-03-28] MEDS: QUEtiapine FUMARATE 100 MG TAB PO SCH (07:28)
[2017-03-28] MEDS: CHLORHEXIDINE 0.12% (ORAL KIT) 15 ML CUP MT SCH ×2 (07:29→19:29)
[2017-03-28] MEDS: BACITRACIN TOP OINT 15 GM TUBE TOPICAL SCH ×2 (07:29→19:30)
[2017-03-28] MEDS: LACTULOSE SYRUP 20 GM/30 ML CUP PO SCH (07:29)
[2017-03-28] MEDS: MAGNESIUM HYDROXIDE SUSP 30 ML CUP PO SCH ×2 (07:29→19:29)
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
[2017-03-28] MEDS ORDERED: ACETAMINOPHEN 325 MG TAB PO PRN (09:45)
[2017-03-28] MEDS ORDERED: Vancomycin Consult Pharmacy 1 EA OTHER PRN (09:45)
[2017-03-28] MEDS ORDERED: fentaNYL 50 MCG/HR PATCH T-DERMAL SCH ×2 (09:45→11:00)
[2017-03-28] MEDS: PIPERACIL-TAZO 3.375 GM PREMIX 50 ML IV SCH ×2 (10:39→18:00)
[2017-03-28 10:52] LABS: BANDS 45 % (0-6); NEUTROPHIL # MANUAL DIFF 2.7 TH/MM3 (1.8-7.7); POLYS (SEG NEUTROPHILS) 34 % (16-70); TOXIC GRANULATION 1+ (NORMAL); TOXIC VACUOLATION PRESENT (NONE SEEN); WBC DIFF SAMPLE 100
[2017-03-28 10:53] LABS: PLATELET ESTIMATE SMEAR LOW (NORMAL); PLATELET MORPHOLOGY NORMAL (NORMAL); SCAN/DIFF FINAL DIFF MANUAL
[2017-03-28] MEDS ORDERED: VANCOMYCIN INJ 1,000 MG in SODIUM CHLOR 0.9% 250 ML INJ 250 ML IV SCH (11:00)
[2017-03-28] MEDS ORDERED: fentaNYL 75 MCG/HR PATCH T-DERMAL SCH (11:00)
[2017-03-28] MEDS ORDERED: fentaNYL 100 MCG/HR PATCH T-DERMAL SCH (11:00)
[2017-03-28] MEDS ORDERED: fentaNYL 25 MCG/HR PATCH T-DERMAL SCH (11:00)
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
[2017-03-28 12:43] LABS: BLOOD, URINE TRACE (NEG); GLUCOSE,URINE NEG (NEG); KETONE, URINE NEG (NEG); MUCUS URINE FEW /lpf (OCC); NITRITE,URINE NEG (NEG); SQUAMOUS EPITHELIAL CELL URINE <1 /hpf (0-5); URINE COLOR YELLOW (YELLW/STRAW)
[2017-03-28 12:44] LABS: COMMENT (UR) CATH-CULT NOT IND; CULTURE IF INDICATED CATH CULTURE NOT IND
[2017-03-28] MEDS: QUEtiapine FUMARATE 25 MG TAB PO SCH (19:46)
[2017-03-28] MEDS: VANCOMYCIN INJ 1,000 MG in SODIUM CHLOR 0.9% 250 ML INJ 250 ML IV SCH (21:31)
[2017-03-29] VITALS (19 sets, daily range): BP systolic 79–149; BP diastolic 48–73; PULSE 60–106; RESP 17–26; TEMP 97.7–98.3; O2SAT 92–100
[2017-03-29] MEDS: METHOCARBAMOL 500 MG TAB PO SCH ×2 (03:18→10:01)
[2017-03-29] MEDS: DEXMEDETOMIDINE 200 MCG in NS 48 ML IV PRN ×2 (03:19→10:52)
[2017-03-29] MEDS: PIPERACIL-TAZO 3.375 GM PREMIX 50 ML IV SCH ×3 (03:19→18:59)
[2017-03-29] MEDS: ARTIFICIAL TEARS OPTH SOLN 15 ML BTL EACH EYE SCH ×3 (03:19→17:49)
[2017-03-29] MEDS: CHLORHEXIDINE GLUCONATE 2 % 1 PACK (2 CLOTHS) TOP SCH (03:19)
[2017-03-29] MEDS: RESP: ALBUTEROL 2.5 MG/IPRATROPIUM 0.5 MG NEB (SCH) INH ×4 (03:27→20:43)
[2017-03-29] MEDS: INSULIN NovoLIN REGULAR SUPPLEMENTAL SCALE SQ SCH ×4 (05:15→18:00)
[2017-03-29 07:49] LABS: AUTOMATED NEUTROPHIL # 3.8 TH/MM3 (1.8-7.7); BASOPHIL % 0.2 % (0.0-2.0); EOSINOPHIL # 0.2 TH/MM3 (0-0.4); EOSINOPHIL % 3.2 % (0.0-4.0); HEMATOCRIT 24.4 % (39.0-51.0); LYMPH % 10.7 % (9.0-44.0); LYMPHOCYTE # 0.5 TH/MM3 (1.0-4.8); MEAN CELL VOLUME 97.3 FL (80.0-100.0); MEAN CORPUSCULAR HEMOGLOBIN 32.4 PG (27.0-34.0); MEAN CORPUSCULAR HGB CONC 33.3 % (32.0-36.0); MONO % 7.2 % (0.0-8.0); NEUT % 78.7 % (16.0-70.0); PLATELET COUNT 58 TH/MM3 (150-450); RED BLOOD COUNT 2.51 MIL/MM3 (4.50-5.90); RED CELL DISTRIBUTION WIDTH 14.2 % (11.6-17.2); WHITE BLOOD COUNT 4.9 TH/MM3 (4.0-11.0)
[2017-03-29 08:00] LABS: HEMO FLAGS AUTO DIFF
[2017-03-29 08:12] LABS: ANION GAP 6 MEQ/L (5-15); AST (GOT) 14 U/L (15-37); BICARBONATE 28.2 MEQ/L (21.0-32.0); BLOOD UREA NITROGEN 24 MG/DL (7-18); CHLORIDE 108 MEQ/L (98-107); GLOMERULAR FILTRATION RATE 164 ML/MIN (>89); POTASSIUM 3.5 MEQ/L (3.5-5.1); SODIUM (NA) 142 MEQ/L (136-145)
[2017-03-29 08:14] LABS: ALT (GPT) 11 U/L (12-78)
[2017-03-29 08:16] LABS: ALKALINE PHOSPHATASE 59 U/L (45-117); TOTAL BILIRUBIN ADULT 0.4 MG/DL (0.2-1.0)
[2017-03-29 08:33] LABS: PLATELET ESTIMATE SMEAR LOW (NORMAL); PLATELET MORPHOLOGY ENLARGED (NORMAL); SCAN/DIFF AUTO DIFF CONFIRMED
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
[2017-03-29] MEDS ORDERED: fentaNYL 25 MCG/HR PATCH T-DERMAL SCH ×2 (09:30→10:00)
[2017-03-29] MEDS ORDERED: POTASSIUM CHLORIDE 25 MEQ EFFERVESCENT TAB PO ONE (09:30)
[2017-03-29] MEDS ORDERED: BUMETANIDE INJ 1 MG/4 ML VIAL IV PUSH ONE (09:30)
[2017-03-29] MEDS: MAGNESIUM HYDROXIDE SUSP 30 ML CUP PO SCH ×2 (09:57→21:36)
[2017-03-29] MEDS: CHLORHEXIDINE 0.12% (ORAL KIT) 15 ML CUP MT SCH (09:57)
[2017-03-29] MEDS: PANTOPRAZOLE SODIUM 40 MG VIAL IV SCH (09:58)
[2017-03-29] MEDS: DOCUSATE SODIUM 50 MG/SENNA 8.6 MG TAB PO SCH ×2 (09:59→21:36)
[2017-03-29] MEDS: LACTULOSE SYRUP 20 GM/30 ML CUP PO SCH (09:59)
[2017-03-29] MEDS: QUEtiapine FUMARATE 25 MG TAB PO SCH (10:00)
[2017-03-29] MEDS: BACITRACIN TOP OINT 15 GM TUBE TOPICAL SCH ×2 (10:02→21:00)
[2017-03-29] MEDS: VANCOMYCIN INJ 1,000 MG in SODIUM CHLOR 0.9% 250 ML INJ 250 ML IV SCH (10:04)
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
[2017-03-29] MEDS ORDERED: MORPHINE SULFATE 2 MG/ML INJ IV PUSH PRN (15:30)
--- NOTE | 2017-03-29 18:37 | PD.WCN.NOT ---
Wound Consult Description: Received consult from Doctor Marks for High risk for sacral wound, bed recommendation/ sacral wound. Communicated with: AKI MUNOZ and Doctor Damon Recommendation: Please cleanse buttock area gently with soap and water and pat dry. Apply skin prep over DTI to coccyx and leave open to air Please obtain [place] airapy bed or if not available please order K-4 or advance 4 bed Continue to turn patient every 2 hours. Additional Information: Milvia seen on [address] [place] [address] for evaluation of bed recommendation for a high risk for sacral wound patient. Assessed patient with the assistance of AKI MUNOZ. Repositioned patient to L side for wound assessment with maximum assistance from appeals writer, Gabriella [address] [place] [address] and Respiratory therapist to reveal non blanchable area of purple discoloration of coccyx area that is dry and intact, indicating deep tissue injury. Left DTI open to air. RN to spray DTI with Cavilon skin prep spray and leave open to air. Patient is in need of pressure relieving support surface, such as [place] airapy bed, or a K- 4 bed from [facility]. Positioned patient to R side with pillows. Vidya Hill [facility] Mar 29, 2017 18:36
[2017-03-29] MEDS: ACETAMINOPHEN 1000 MG/100 ML VIAL IV SCH (19:00)
[2017-03-29] MEDS: METHOCARBAMOL INJ 1,000 MG in SODIUM CHLOR 0.9% 250 ML INJ 240 ML IV SCH (21:36)
[2017-03-29] MEDS ORDERED: PHARMACY ORDERED LAB ONE (22:45)
[2017-03-30] VITALS (14 sets, daily range): BP systolic 141–179; BP diastolic 60–112; PULSE 64–126; RESP 15–27; TEMP 97–98.6; O2SAT 93–100
[2017-03-30] MEDS: ACETAMINOPHEN 1000 MG/100 ML VIAL IV SCH ×3 (00:09→13:03)
[2017-03-30] MEDS: VANCOMYCIN INJ 1,000 MG in SODIUM CHLOR 0.9% 250 ML INJ 250 ML IV SCH (00:09)
[2017-03-30] MEDS: PIPERACIL-TAZO 3.375 GM PREMIX 50 ML IV SCH ×3 (01:00→17:40)
[2017-03-30] MEDS: ARTIFICIAL TEARS OPTH SOLN 15 ML BTL EACH EYE SCH ×3 (01:01→17:40)
[2017-03-30] MEDS: RESP: ALBUTEROL 2.5 MG/IPRATROPIUM 0.5 MG NEB (SCH) INH ×4 (01:35→20:07)
[2017-03-30] MEDS: CHLORHEXIDINE GLUCONATE 2 % 1 PACK (2 CLOTHS) TOP SCH (03:43)
[2017-03-30] MEDS: METHOCARBAMOL INJ 1,000 MG in SODIUM CHLOR 0.9% 250 ML INJ 240 ML IV SCH ×3 (05:18→21:01)
[2017-03-30 05:43] LABS: AUTOMATED NEUTROPHIL # 12.3 TH/MM3 (1.8-7.7); BASOPHIL % 0.1 % (0.0-2.0); EOSINOPHIL % 0.1 % (0.0-4.0); HEMATOCRIT 32.7 % (39.0-51.0); LYMPHOCYTE # 0.4 TH/MM3 (1.0-4.8); MEAN CELL VOLUME 96.3 FL (80.0-100.0); MEAN CORPUSCULAR HEMOGLOBIN 31.8 PG (27.0-34.0); NEUT % 92.8 % (16.0-70.0); PLATELET COUNT 90 TH/MM3 (150-450); RED CELL DISTRIBUTION WIDTH 14.1 % (11.6-17.2); WHITE BLOOD COUNT 13.2 TH/MM3 (4.0-11.0)
[2017-03-30 05:57] LABS: HEMO FLAGS AUTO DIFF
[2017-03-30] MEDS: INSULIN NovoLIN REGULAR SUPPLEMENTAL SCALE SQ SCH ×5 (06:00→23:46)
[2017-03-30 06:36] LABS: ALKALINE PHOSPHATASE 79 U/L (45-117); ALT (GPT) 17 U/L (12-78); ANION GAP 7 MEQ/L (5-15); AST (GOT) 28 U/L (15-37); BICARBONATE 30.1 MEQ/L (21.0-32.0); BLOOD UREA NITROGEN 15 MG/DL (7-18); CHLORIDE 103 MEQ/L (98-107); GLOMERULAR FILTRATION RATE 142 ML/MIN (>89); SODIUM (NA) 140 MEQ/L (136-145); TOTAL BILIRUBIN ADULT 0.9 MG/DL (0.2-1.0)
[2017-03-30 06:52] LABS: BANDS 28 % (0-6); NEUTROPHIL # MANUAL DIFF 12.4 TH/MM3 (1.8-7.7); POLYS (SEG NEUTROPHILS) 66 % (16-70); WBC DIFF SAMPLE 100
[2017-03-30 06:53] LABS: PLATELET ESTIMATE SMEAR LOW (NORMAL); PLATELET MORPHOLOGY NORMAL (NORMAL); SCAN/DIFF FINAL DIFF MANUAL
[2017-03-30] MEDS: LACTULOSE SYRUP 20 GM/30 ML CUP PO SCH (09:00)
[2017-03-30] MEDS: PANTOPRAZOLE SODIUM 40 MG VIAL IV SCH (09:40)
[2017-03-30] MEDS: BACITRACIN TOP OINT 15 GM TUBE TOPICAL SCH ×2 (09:41→20:23)
[2017-03-30] MEDS: VANCOMYCIN INJ 1,250 MG in SODIUM CHLOR 0.9% 250 ML INJ 250 ML IV SCH ×2 (09:41→21:02)
[2017-03-30] MEDS: DOCUSATE SODIUM 50 MG/SENNA 8.6 MG TAB PO SCH ×2 (09:45→20:20)
[2017-03-30] MEDS: MAGNESIUM HYDROXIDE SUSP 30 ML CUP PO SCH ×2 (09:45→20:20)
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
[2017-03-30] MEDS: POTASSIUM CHLOR 20 MEQ PREMIX 100 ML IV PRN ×4 (13:42→22:53)
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
[2017-03-30] MEDS: hydrALAZINE HCL 20 MG/ML VIAL IV PUSH PRN ×2 (16:40→20:39)
[2017-03-30] MEDS: ENALAPRILAT 1.25 MG/ML VIAL IV PUSH PRN (18:10)
[2017-03-30] MEDS: QUEtiapine FUMARATE 25 MG TAB PO SCH (21:10)
[2017-03-31] VITALS (10 sets, daily range): BP systolic 137–159; BP diastolic 51–103; PULSE 84–107; RESP 16–23; TEMP 96.7–98.6; O2SAT 92–98
[2017-03-31] MEDS: PIPERACIL-TAZO 3.375 GM PREMIX 50 ML IV SCH ×3 (01:20→20:46)
[2017-03-31] MEDS: ARTIFICIAL TEARS OPTH SOLN 15 ML BTL EACH EYE SCH ×3 (01:20→20:46)
[2017-03-31] MEDS: CHLORHEXIDINE GLUCONATE 2 % 1 PACK (2 CLOTHS) TOP SCH (04:00)
[2017-03-31] MEDS: RESP: ALBUTEROL 2.5 MG/IPRATROPIUM 0.5 MG NEB (SCH) INH ×2 (04:11→08:06)
[2017-03-31] MEDS: METHOCARBAMOL INJ 1,000 MG in SODIUM CHLOR 0.9% 250 ML INJ 240 ML IV SCH ×3 (05:18→21:35)
[2017-03-31 05:28] LABS: AUTOMATED NEUTROPHIL # 11.3 TH/MM3 (1.8-7.7); BASOPHIL % 0.3 % (0.0-2.0); EOSINOPHIL % 0.2 % (0.0-4.0); HEMATOCRIT 37.7 % (39.0-51.0); HEMO FLAGS DIFF FINAL; LYMPH % 4.9 % (9.0-44.0); LYMPHOCYTE # 0.6 TH/MM3 (1.0-4.8); MEAN CELL VOLUME 94.8 FL (80.0-100.0); MEAN CORPUSCULAR HEMOGLOBIN 31.6 PG (27.0-34.0); MEAN CORPUSCULAR HGB CONC 33.3 % (32.0-36.0); MONO % 4.8 % (0.0-8.0); NEUT % 89.8 % (16.0-70.0); PLATELET COUNT 124 TH/MM3 (150-450); RED BLOOD COUNT 3.97 MIL/MM3 (4.50-5.90); RED CELL DISTRIBUTION WIDTH 13.9 % (11.6-17.2); WHITE BLOOD COUNT 12.5 TH/MM3 (4.0-11.0)
[2017-03-31] MEDS: INSULIN NovoLIN REGULAR SUPPLEMENTAL SCALE SQ SCH ×3 (06:00→21:34)
[2017-03-31 06:04] LABS: ALT (GPT) 20 U/L (12-78); ANION GAP 10 MEQ/L (5-15); AST (GOT) 29 U/L (15-37); BICARBONATE 26.4 MEQ/L (21.0-32.0); BLOOD UREA NITROGEN 10 MG/DL (7-18); CHLORIDE 100 MEQ/L (98-107); GLOMERULAR FILTRATION RATE 148 ML/MIN (>89); POTASSIUM 3.9 MEQ/L (3.5-5.1); SODIUM (NA) 136 MEQ/L (136-145)
[2017-03-31 06:08] LABS: ALKALINE PHOSPHATASE 98 U/L (45-117)
[2017-03-31] MEDS: PANTOPRAZOLE SODIUM 40 MG VIAL IV SCH (08:11)
[2017-03-31] MEDS: DOCUSATE SODIUM 50 MG/SENNA 8.6 MG TAB PO SCH ×2 (08:12→20:45)
[2017-03-31] MEDS: QUEtiapine FUMARATE 25 MG TAB PO SCH ×2 (08:12→20:45)
[2017-03-31] MEDS: BACITRACIN TOP OINT 15 GM TUBE TOPICAL SCH ×2 (08:15→20:58)
[2017-03-31] MEDS: MAGNESIUM HYDROXIDE SUSP 30 ML CUP PO SCH ×2 (08:16→20:00)
[2017-03-31] MEDS: LACTULOSE SYRUP 20 GM/30 ML CUP PO SCH (09:00)
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
[2017-03-31] MEDS: VANCOMYCIN INJ 1,250 MG in SODIUM CHLOR 0.9% 250 ML INJ 250 ML IV SCH ×2 (10:57→21:35)
[2017-03-31] MEDS ORDERED: REMOVE OLD DURAGESIC (FENTANYL) PATCH T-DERMAL SCH (11:00)
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
[2017-04-01] VITALS (14 sets, daily range): BP systolic 101–159; BP diastolic 70–100; PULSE 72–121; RESP 16–30; TEMP 96.4–98.8; O2SAT 84–100
[2017-04-01] MEDS: ARTIFICIAL TEARS OPTH SOLN 15 ML BTL EACH EYE SCH ×3 (02:00→17:29)
[2017-04-01] MEDS: PIPERACIL-TAZO 3.375 GM PREMIX 50 ML IV SCH ×3 (02:00→17:30)
[2017-04-01] MEDS: METHOCARBAMOL INJ 1,000 MG in SODIUM CHLOR 0.9% 250 ML INJ 240 ML IV SCH ×2 (05:22→16:27)
[2017-04-01 06:14] LABS: AUTOMATED NEUTROPHIL # 10.1 TH/MM3 (1.8-7.7); BASOPHIL % 0.2 % (0.0-2.0); EOSINOPHIL # 0.1 TH/MM3 (0-0.4); HEMATOCRIT 37.7 % (39.0-51.0); HEMO FLAGS DIFF FINAL; LYMPH % 7.5 % (9.0-44.0); LYMPHOCYTE # 0.9 TH/MM3 (1.0-4.8); MEAN CELL VOLUME 95.4 FL (80.0-100.0); MEAN CORPUSCULAR HEMOGLOBIN 31.1 PG (27.0-34.0); MEAN CORPUSCULAR HGB CONC 32.6 % (32.0-36.0); NEUT % 82.3 % (16.0-70.0); PLATELET COUNT 145 TH/MM3 (150-450); RED BLOOD COUNT 3.95 MIL/MM3 (4.50-5.90); RED CELL DISTRIBUTION WIDTH 14.2 % (11.6-17.2); WHITE BLOOD COUNT 12.3 TH/MM3 (4.0-11.0)
[2017-04-01 06:48] LABS: ALKALINE PHOSPHATASE 86 U/L (45-117); ALT (GPT) 18 U/L (12-78); ANION GAP 11 MEQ/L (5-15); AST (GOT) 18 U/L (15-37); BICARBONATE 25.8 MEQ/L (21.0-32.0); BLOOD UREA NITROGEN 13 MG/DL (7-18); CHLORIDE 102 MEQ/L (98-107); GLOMERULAR FILTRATION RATE 142 ML/MIN (>89); SODIUM (NA) 139 MEQ/L (136-145); TOTAL BILIRUBIN ADULT 0.6 MG/DL (0.2-1.0)
[2017-04-01] MEDS: INSULIN NovoLIN REGULAR SUPPLEMENTAL SCALE SQ SCH ×4 (08:00→21:00)
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
[2017-04-01] MEDS: BACITRACIN TOP OINT 15 GM TUBE TOPICAL SCH ×2 (09:00→20:53)
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
[2017-04-01] MEDS: MAGNESIUM HYDROXIDE SUSP 30 ML CUP PO SCH ×2 (09:39→20:37)
[2017-04-01] MEDS: PANTOPRAZOLE SODIUM 40 MG VIAL IV SCH (09:39)
[2017-04-01] MEDS: LACTULOSE SYRUP 20 GM/30 ML CUP PO SCH (09:39)
[2017-04-01] MEDS: DOCUSATE SODIUM 50 MG/SENNA 8.6 MG TAB PO SCH ×2 (09:39→20:53)
[2017-04-01] MEDS: QUEtiapine FUMARATE 25 MG TAB PO SCH ×2 (09:39→20:36)
[2017-04-01] MEDS ORDERED: PHARMACY ORDERED LAB ONE (09:45)
[2017-04-01] MEDS ORDERED: REMOVE OLD DURAGESIC (FENTANYL) PATCH T-DERMAL SCH (10:00)
--- NOTE | 2017-04-01 10:06 | PD.ORT.PN ---
Subjective Subjective Remarks Stable but confused Objective Vitals Vital Signs Date Time Temp Pulse Resp B/P (MAP) Pulse Ox O2 Delivery O2 Flow Rate FiO2 04/01/17 08:00 96.4 89 17 156/100 (118) 96 04/01/17 04:00 97.7 80 17 159/99 (119) 96 04/01/17 00:00 98.0 86 16 144/99 (114) 97 03/31/17 20:00 97.5 100 16 149/98 (115) 94 03/31/17 16:00 97.6 93 20 158/99 (118) 93 03/31/17 12:00 96.7 104 20 154/103 (120) 92 I/O 03/31/17 03/31/17 03/31/17 04/01/17 04/01/17 04/01/17 07:00 15:00 23:00 07:00 15:00 23:00 Intake Total 1399 ml 120 ml 810 ml 240 ml Output Total 4075 ml 750 ml 700 ml 600 ml Balance -2676 ml -630 ml 110 ml -360 ml Intake Oral 70 ml 120 ml 360 ml 240 ml IV Total 1329 ml 450 ml Output Urine Total 4075 ml 750 ml 700 ml 600 ml # Bowel Movements 0 0 Result Diagram: 04/01/17 0549 04/01/17 0549 Imaging Last 72 hours Impressions Carotid Artery Ultrasound 03/30/17 0000 Signed Impressions: Service Date/Time: Thursday, March 30, 2017 14:15 - CONCLUSION: Negative examination for a hemodynamically significant carotid stenosis. Lam Portillo MD FACR Objective Remarks Right clavicle with mild crepitus and tenderness to palpation. Skin is intact with minimal skin tenting. Minimal pain with passive range of motion of shoulder elbow wrist and fingers. Distally he has intact sensation is able to extend his fingers and flex his fingers Assessment & Plan Assessment and Plan Right distal clavicle fracture Continue nonoperative treatment Will re-x-ray in 1-2 weeks to evaluate continued alignment of distal clavicle Limited weightbearing on right upper extremity Cordell Rothman Jr. Apr 01, 2017 10:05
[2017-04-01] MEDS: ENALAPRILAT 1.25 MG/ML VIAL IV PUSH PRN (10:21)
[2017-04-01] MEDS: POTASSIUM CHLORIDE 25 MEQ EFFERVESCENT TAB NG SCH ×2 (10:22→20:37)
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
[2017-04-01 11:57] LABS: BLOOD GAS BASE EXCESS 4.8 mmol/L (-2-2); BLOOD GAS CARBOXYHEMOGLOBIN 1.5 % (0-4); BLOOD GAS HCO3 28 mmol/L (22-26); BLOOD GAS METHEMOGLOBIN 0.7 % (0-2); BLOOD GAS O2 HGB SATURATION 88 % (90-100); BLOOD GAS OXYGEN CONTENT 14.7 Vol % (12.0-20.0); BLOOD GAS PCO2 34 mmHg (38-42); BLOOD GAS PO2 57 mmHg (61-120); BLOOD GAS TOTAL HGB 11.8 G/DL (12.0-16.0); OXYGEN DEVICE NRB; TEMP CORR TO 98.6
[2017-04-01 11:58] LABS: DRAW SITE LT RADIAL; LITER FLOW 15 L/M; NUMBER OF ARTERIAL PUNCTURES 2; STAT YES; ULNAR PULSE PRESENT
[2017-04-01] MEDS ORDERED: ROCURONIUM INJ 50 MG/5 ML VIAL ONE (12:03)
[2017-04-01] MEDS ORDERED: ETOMIDATE 20 MG/10 ML VIAL ONE (12:03)
--- NOTE | 2017-04-01 12:05 | RADRPT ---
EXAM DATE/TIME: 04/01/2017 11:26 [facility] COMPARISON: CHEST SINGLE AP, March 28, 2017, 4:12. INDICATIONS : Short of breath. MEDICAL HISTORY : CVA, Bipolar history SURGICAL HISTORY : unable to obtain. ENCOUNTER: Initial ACUITY: 1 week PAIN SCORE: Non-responsive. LOCATION: Bilateral chest FINDINGS: Patchy air space disease is present in both lungs worse on the right than the left. Heart and vascul arity are normal. Nondisplaced rib fracture on the right. CONCLUSION: Minimal improvement following extubation. Lam Portillo MD FACR on April 01, 2017 at 12:02 Board Certified Radiologist. This report was verified electronically.
[2017-04-01] MEDS ORDERED: PROPOFOL 1000 MG/100 ML INJ 100 ML ONE (12:06)
--- NOTE | 2017-04-01 13:05 | RADRPT ---
EXAM DATE/TIME: 04/01/2017 12:15 [facility] COMPARISON: CHEST SINGLE AP, April 01, 2017, 11:26. INDICATIONS : Endotracheal tube placement. MEDICAL HISTORY : CVA, bipolar disorder SURGICAL HISTORY : None. ENCOUNTER: Initial ACUITY: 1 week PAIN SCORE: Non-responsive. LOCATION: Bilateral chest FINDINGS: The endotracheal tube has its tip 2 cm above the brent. A nasogastric tube has its tip below the di aphragm. Scattered patchy infiltrates are noted bilaterally consistent with probable pneumonia. The heart is stable. Degenerative changes and scoliosis of the thoracolumbar spine are noted. CONCLUSION: 1. Endotracheal tube in good position 2 cm above the rbent. 2. Stable scattered infiltrates consistent with probable pneumonia. 3. Degenerative changes and scoliosis if the thoracolumbar spine. Baldemar Duff MD on April 01, 2017 at 12:38 Board Certified Radiologist. This report was verified electronically.
[2017-04-01 13:06] LABS: BLOOD GAS CARBOXYHEMOGLOBIN 1.3 % (0-4); BLOOD GAS HCO3 29 mmol/L (22-26); BLOOD GAS METHEMOGLOBIN 0.8 % (0-2); BLOOD GAS O2 HGB SATURATION 92 % (90-100); BLOOD GAS OXYGEN CONTENT 14.7 Vol % (12.0-20.0); BLOOD GAS PCO2 41 mmHg (38-42); BLOOD GAS PO2 72 mmHg (61-120); BLOOD GAS TOTAL HGB 11.4 G/DL (12.0-16.0); CRITICAL VALUE NO; TEMP CORR TO 98.6
[2017-04-01 13:07] LABS: DRAW SITE RT RADIAL; FIO2 50 %; NUMBER OF ARTERIAL PUNCTURES 1; OXYGEN DEVICE VENTILATOR; STAT NO; ULNAR PULSE PRESENT; VENT SETTINGS PRVC/AC
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
--- NOTE | 2017-04-01 13:42 | PD.PROCEDR ---
Procedure Note Procedure Procedure: Endotracheal intubation Preop diagnosis: Acute respiratory failure, pneumonia Postop diagnosis: Same Sedation used: Etomidate 20 mg, fentanyl 200 mcg, rocuronium 50 mg IV Procedure: Patient was preoxygenated with 100% oxygen via Ambu bag with bag mask ventilation, following induction of sedation and neuromuscular blockade, direct laryngoscopy was performed using a Mac 4 blade with good visualization of vocal cords. An 8 Italian ET tube was passed through the vocal cords under direct visualization up to the 25 centimeter elsi and after inflating cuff of ET tube, correct placement was confirmed using bagging with good color change on CO2 detector, 5 point auscultation and chest rise with ventilation. Patient was connected to mechanical ventilation. Patient tolerated the procedure well with no immediate complications noted. Postprocedure chest x-ray was ordered. Curtis Zimmerman MD Apr 01, 2017 13:42
[2017-04-01 14:00] LABS: BLOOD, URINE NEG (NEG); GLUCOSE,URINE NEG (NEG); KETONE, URINE TRACE mg/dL (NEG); MUCUS URINE FEW /lpf (OCC); NITRITE,URINE NEG (NEG); URINE COLOR YELLOW (YELLW/STRAW)
[2017-04-01 14:02] LABS: COMMENT (UR) CATH-CULT NOT IND; CULTURE IF INDICATED CATH CULTURE NOT IND
[2017-04-01] MEDS ORDERED: ICU - POTASSIUM CHLORIDE/AQUEOUS SOLN 40 MEQ/100 ML IVPB IV PRN (14:45)
[2017-04-01] MEDS ORDERED: ICU - MAGNESIUM SULFATE 4 GM/NS 100 ML IV PRN ×2 (14:45)
[2017-04-01] MEDS ORDERED: ICU - SODIUM PHOSPHATE 30 MMOL/NS 250 ML IV PRN ×2 (14:45)
[2017-04-01] MEDS ORDERED: ICU - MAGNESIUM SULFATE 2 GM/NS 100 ML IV PRN ×2 (14:45)
[2017-04-01] MEDS ORDERED: ICU - CALL ORDERING PHYSICIAN PRN (14:45)
[2017-04-01] MEDS ORDERED: ICU - MAGNESIUM OXIDE 400 MG TAB PO PRN (14:45)
[2017-04-01] MEDS ORDERED: ICU - POTASSIUM CHLORIDE/AQUEOUS SOLN 20 MEQ/100 ML IVPB IV PRN (14:45)
[2017-04-01] MEDS ORDERED: ICU - POTASSIUM PHOSPHATE 30 MMOL/NS 250 ML IV PRN ×2 (14:45)
[2017-04-01] MEDS ORDERED: POTASSIUM CHLORIDE 25 MEQ EFFERVESCENT TAB PO PRN (14:45)
[2017-04-01] MEDS ORDERED: ICU - D/C ICU ELECTROLYTE ORDERS PRN (14:45)
[2017-04-01] MEDS ORDERED: ICU - POTASSIUM PHOSPHATE MONOBASIC 500 MG TAB PO PRN (14:45)
[2017-04-01] MEDS: PROPOFOL 1000 MG/100 ML IV PRN (20:36)
[2017-04-01] MEDS: CHLORHEXIDINE 0.12% (ORAL KIT) 15 ML CUP MT SCH (20:53)
[2017-04-01] MEDS: VANCOMYCIN 1,000 MG/NS 250 ML IV SCH ×2 (21:09)
[2017-04-01] MEDS ORDERED: POTASSIUM CHLORIDE 20 MEQ PWD PACKET NG ONE (21:45)
[2017-04-01] MEDS: POTASSIUM CHLOR 10 MEQ PREMIX 100 ML IV SCH ×2 (22:19→23:21)
[2017-04-02] VITALS (19 sets, daily range): BP systolic 94–167; BP diastolic 58–90; PULSE 43–100; RESP 11–22; TEMP 97.7–99.6; O2SAT 96–100
[2017-04-02] MEDS: POTASSIUM CHLOR 10 MEQ PREMIX 100 ML IV SCH (00:20)
[2017-04-02] MEDS: SODIUM CHLOR 0.9% 1000 ML INJ 1,000 ML IV SCH ×2 (01:00→09:30)
[2017-04-02] MEDS: ARTIFICIAL TEARS OPTH SOLN 15 ML BTL EACH EYE SCH ×2 (01:22→10:00)
[2017-04-02] MEDS: PIPERACIL-TAZO 3.375 GM PREMIX 50 ML IV SCH ×3 (01:22→18:25)
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
[2017-04-02] MEDS: PROPOFOL 1000 MG/100 ML IV PRN (05:26)
[2017-04-02 05:42] LABS: BLOOD GAS BASE EXCESS 1.5 mmol/L (-2-2); BLOOD GAS HCO3 25 mmol/L (22-26); BLOOD GAS METHEMOGLOBIN 0.9 % (0-2); BLOOD GAS O2 HGB SATURATION 97 % (90-100); BLOOD GAS OXYGEN CONTENT 13.7 Vol % (12.0-20.0); BLOOD GAS PCO2 38 mmHg (38-42); BLOOD GAS PO2 120 mmHg (61-120); BLOOD GAS TOTAL HGB 9.9 G/DL (12.0-16.0); TEMP CORR TO 98.6
[2017-04-02 05:43] LABS: CRITICAL VALUE NO; FIO2 35 %; OXYGEN DEVICE VENTILATOR; VENT SETTINGS PRVC / AC /
[2017-04-02 05:44] LABS: DRAW SITE RT RADIAL; NUMBER OF ARTERIAL PUNCTURES 1; STAT NO; ULNAR PULSE PRESENT
[2017-04-02] MEDS ORDERED: SODIUM CHLOR 0.9% 1000 ML INJ 1,000 ML IV ONE (06:00)
[2017-04-02] MEDS ORDERED: ALBUMIN HUMAN 25% 25 GM/100 ML BAGP IV ONE (06:00)
[2017-04-02 07:31] LABS: AUTOMATED NEUTROPHIL # 9.9 TH/MM3 (1.8-7.7); BASOPHIL # 0.1 TH/MM3 (0-0.2); EOSINOPHIL # 0.2 TH/MM3 (0-0.4); EOSINOPHIL % 2.1 % (0.0-4.0); HEMATOCRIT 28.3 % (39.0-51.0); HEMO FLAGS DIFF FINAL; LYMPH % 5.4 % (9.0-44.0); LYMPHOCYTE # 0.6 TH/MM3 (1.0-4.8); MEAN CELL VOLUME 95.1 FL (80.0-100.0); MEAN CORPUSCULAR HEMOGLOBIN 31.7 PG (27.0-34.0); MEAN CORPUSCULAR HGB CONC 33.3 % (32.0-36.0); MONO % 3.2 % (0.0-8.0); NEUT % 88.3 % (16.0-70.0); PLATELET COUNT 159 TH/MM3 (150-450); RED BLOOD COUNT 2.97 MIL/MM3 (4.50-5.90); RED CELL DISTRIBUTION WIDTH 14.5 % (11.6-17.2); WHITE BLOOD COUNT 11.2 TH/MM3 (4.0-11.0)
[2017-04-02] MEDS: CHLORHEXIDINE 0.12% (ORAL KIT) 15 ML CUP MT SCH ×2 (08:00→21:55)
[2017-04-02] MEDS: INSULIN NovoLIN REGULAR SUPPLEMENTAL SCALE SQ SCH ×4 (08:00→21:00)
[2017-04-02] MEDS: MAGNESIUM HYDROXIDE SUSP 30 ML CUP PO SCH ×2 (08:00→21:54)
[2017-04-02 08:16] LABS: ALKALINE PHOSPHATASE 79 U/L (45-117); ALT (GPT) 14 U/L (12-78); ANION GAP 6 MEQ/L (5-15); AST (GOT) 16 U/L (15-37); BICARBONATE 26.8 MEQ/L (21.0-32.0); BLOOD UREA NITROGEN 18 MG/DL (7-18); CHLORIDE 104 MEQ/L (98-107); GLOMERULAR FILTRATION RATE 142 ML/MIN (>89); POTASSIUM 3.8 MEQ/L (3.5-5.1); SODIUM (NA) 137 MEQ/L (136-145); TOTAL BILIRUBIN ADULT 0.5 MG/DL (0.2-1.0)
[2017-04-02] MEDS: BACITRACIN TOP OINT 15 GM TUBE TOPICAL SCH (09:00)
[2017-04-02] MEDS: DOCUSATE SODIUM 50 MG/SENNA 8.6 MG TAB PO SCH ×2 (09:00→21:54)
[2017-04-02] MEDS: LACTULOSE SYRUP 20 GM/30 ML CUP PO SCH (09:00)
[2017-04-02] MEDS: PANTOPRAZOLE SODIUM 40 MG VIAL IV SCH (09:00)
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
[2017-04-02] MEDS: VANCOMYCIN 1,000 MG/NS 250 ML IV SCH ×4 (10:00→22:09)
[2017-04-02] MEDS: QUEtiapine FUMARATE 25 MG TAB PO SCH ×2 (10:10→21:54)
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
[2017-04-02] MEDS: ENOXAPARIN SODIUM 30 MG/0.3 ML SYRINGE SQ SCH ×2 (13:01→22:10)
[2017-04-03] VITALS (17 sets, daily range): BP systolic 91–180; BP diastolic 56–104; PULSE 62–115; RESP 14–25; TEMP 97.6–98.8; O2SAT 92–100
[2017-04-03] MEDS: PIPERACIL-TAZO 3.375 GM PREMIX 50 ML IV SCH ×3 (01:09→17:32)
[2017-04-03] MEDS: PROPOFOL 1000 MG/100 ML IV PRN (01:11)
[2017-04-03] MEDS: ARTIFICIAL TEARS OPTH SOLN 15 ML BTL EACH EYE SCH ×3 (02:00→17:32)
[2017-04-03] MEDS: BACITRACIN TOP OINT 15 GM TUBE TOPICAL SCH ×3 (02:46→20:08)
[2017-04-03 04:20] LABS: AUTOMATED NEUTROPHIL # 5.3 TH/MM3 (1.8-7.7); BASOPHIL % 0.4 % (0.0-2.0); EOSINOPHIL # 0.3 TH/MM3 (0-0.4); EOSINOPHIL % 4.5 % (0.0-4.0); HEMATOCRIT 26.2 % (39.0-51.0); HEMO FLAGS DIFF FINAL; LYMPH % 13.4 % (9.0-44.0); MEAN CELL VOLUME 96.8 FL (80.0-100.0); MEAN CORPUSCULAR HEMOGLOBIN 31.6 PG (27.0-34.0); MEAN CORPUSCULAR HGB CONC 32.7 % (32.0-36.0); MONO % 8.8 % (0.0-8.0); NEUT % 72.9 % (16.0-70.0); PLATELET COUNT 153 TH/MM3 (150-450); RED BLOOD COUNT 2.71 MIL/MM3 (4.50-5.90); RED CELL DISTRIBUTION WIDTH 14.4 % (11.6-17.2); WHITE BLOOD COUNT 7.3 TH/MM3 (4.0-11.0)
[2017-04-03 04:32] LABS: BLOOD GAS BASE EXCESS 4.5 mmol/L (-2-2); BLOOD GAS CARBOXYHEMOGLOBIN 1.2 % (0-4); BLOOD GAS HCO3 28 mmol/L (22-26); BLOOD GAS METHEMOGLOBIN 0.7 % (0-2); BLOOD GAS O2 HGB SATURATION 96 % (90-100); BLOOD GAS OXYGEN CONTENT 10.9 Vol % (12.0-20.0); BLOOD GAS PCO2 41 mmHg (38-42); BLOOD GAS PO2 99 mmHg (61-120); BLOOD GAS TOTAL HGB 7.9 G/DL (12.0-16.0); CRITICAL VALUE NO; OXYGEN DEVICE VENTILATOR; TEMP CORR TO 98.6
[2017-04-03 04:33] LABS: DRAW SITE RT RADIAL; FIO2 35 %; NUMBER OF ARTERIAL PUNCTURES 1; STAT NO; ULNAR PULSE PRESENT; VENT SETTINGS PRVC/AC
[2017-04-03 04:50] LABS: ALT (GPT) 13 U/L (12-78); ANION GAP 6 MEQ/L (5-15); AST (GOT) 14 U/L (15-37); BICARBONATE 27.8 MEQ/L (21.0-32.0); BLOOD UREA NITROGEN 15 MG/DL (7-18); CHLORIDE 109 MEQ/L (98-107); GLOMERULAR FILTRATION RATE 168 ML/MIN (>89); POTASSIUM 3.6 MEQ/L (3.5-5.1); SODIUM (NA) 143 MEQ/L (136-145)
[2017-04-03 04:52] LABS: ALKALINE PHOSPHATASE 65 U/L (45-117); TOTAL BILIRUBIN ADULT 0.3 MG/DL (0.2-1.0)
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
[2017-04-03] MEDS: CHLORHEXIDINE 0.12% (ORAL KIT) 15 ML CUP MT SCH ×2 (08:00→20:00)
[2017-04-03] MEDS: INSULIN NovoLIN REGULAR SUPPLEMENTAL SCALE SQ SCH ×4 (08:00→21:00)
[2017-04-03] MEDS: MAGNESIUM HYDROXIDE SUSP 30 ML CUP PO SCH ×2 (08:00→20:08)
[2017-04-03] MEDS: QUEtiapine FUMARATE 25 MG TAB PO SCH ×2 (08:45→20:07)
[2017-04-03] MEDS: DOCUSATE SODIUM 50 MG/SENNA 8.6 MG TAB PO SCH ×2 (08:46→20:08)
[2017-04-03] MEDS: LACTULOSE SYRUP 20 GM/30 ML CUP PO SCH (08:46)
[2017-04-03] MEDS ORDERED: FAMOTIDINE 20 MG TAB PO SCH (09:00)
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
[2017-04-03] MEDS ORDERED: PHARMACY ORDERED LAB ONE (09:45)
[2017-04-03] MEDS: VANCOMYCIN 1,000 MG/NS 250 ML IV SCH ×4 (10:00→22:41)
[2017-04-03] MEDS: SODIUM CHLOR 0.9% 1000 ML INJ 1,000 ML IV SCH ×2 (10:30→22:41)
[2017-04-03] MEDS: ENOXAPARIN SODIUM 30 MG/0.3 ML SYRINGE SQ SCH ×2 (10:58→22:42)
[2017-04-03] MEDS: ENALAPRILAT 1.25 MG/ML VIAL IV PUSH PRN (13:46)
[2017-04-03] MEDS: HALOPERIDOL LACTATE 5 MG/ML AMP IM PRN (14:35)
[2017-04-03] MEDS: hydrALAZINE HCL 20 MG/ML VIAL IV PUSH PRN (14:55)
[2017-04-03] MEDS: fentaNYL 25 MCG/HR PATCH T-DERMAL SCH (15:00)
[2017-04-04] VITALS (13 sets, daily range): BP systolic 127–173; BP diastolic 81–108; PULSE 62–110; RESP 12–19; TEMP 97.5–98.5; O2SAT 94–97
[2017-04-04] MEDS: ARTIFICIAL TEARS OPTH SOLN 15 ML BTL EACH EYE SCH ×2 (01:15→09:43)
[2017-04-04] MEDS: PIPERACIL-TAZO 3.375 GM PREMIX 50 ML IV SCH ×3 (01:15→17:14)
[2017-04-04] MEDS: ENALAPRILAT 1.25 MG/ML VIAL IV PUSH PRN (04:20)
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
[2017-04-04 05:49] LABS: AUTOMATED NEUTROPHIL # 8.2 TH/MM3 (1.8-7.7); BASOPHIL % 0.3 % (0.0-2.0); EOSINOPHIL # 0.2 TH/MM3 (0-0.4); EOSINOPHIL % 2.3 % (0.0-4.0); HEMATOCRIT 32.3 % (39.0-51.0); HEMO FLAGS DIFF FINAL; LYMPH % 9.9 % (9.0-44.0); MEAN CELL VOLUME 95.7 FL (80.0-100.0); MEAN CORPUSCULAR HEMOGLOBIN 31.8 PG (27.0-34.0); MEAN CORPUSCULAR HGB CONC 33.3 % (32.0-36.0); MONO % 5.7 % (0.0-8.0); NEUT % 81.8 % (16.0-70.0); PLATELET COUNT 245 TH/MM3 (150-450); RED BLOOD COUNT 3.38 MIL/MM3 (4.50-5.90); RED CELL DISTRIBUTION WIDTH 14.5 % (11.6-17.2)
[2017-04-04 06:15] LABS: ANION GAP 7 MEQ/L (5-15); AST (GOT) 15 U/L (15-37); BICARBONATE 26.7 MEQ/L (21.0-32.0); BLOOD UREA NITROGEN 10 MG/DL (7-18); CHLORIDE 104 MEQ/L (98-107); GLOMERULAR FILTRATION RATE 176 ML/MIN (>89); POTASSIUM 3.4 MEQ/L (3.5-5.1); SODIUM (NA) 138 MEQ/L (136-145)
[2017-04-04 06:19] LABS: ALKALINE PHOSPHATASE 88 U/L (45-117); ALT (GPT) 17 U/L (12-78); TOTAL BILIRUBIN ADULT 0.6 MG/DL (0.2-1.0)
[2017-04-04] MEDS: MAGNESIUM HYDROXIDE SUSP 30 ML CUP PO SCH (07:15)
[2017-04-04] MEDS: CHLORHEXIDINE 0.12% (ORAL KIT) 15 ML CUP MT SCH (07:15)
[2017-04-04] MEDS: LACTULOSE SYRUP 20 GM/30 ML CUP PO SCH (09:00)
[2017-04-04] MEDS: BACITRACIN TOP OINT 15 GM TUBE TOPICAL SCH ×2 (09:00→20:10)
[2017-04-04] MEDS: INSULIN NovoLIN REGULAR SUPPLEMENTAL SCALE SQ SCH ×3 (09:00→17:00)
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
[2017-04-04] MEDS: QUEtiapine FUMARATE 25 MG TAB PO SCH ×2 (09:43→20:10)
[2017-04-04] MEDS: DOCUSATE SODIUM 50 MG/SENNA 8.6 MG TAB PO SCH ×2 (09:43→20:10)
[2017-04-04] MEDS: hydrALAZINE HCL 25 MG TAB PO SCH ×3 (09:46→21:43)
[2017-04-04] MEDS: LISINOPRIL 20 MG TAB PO SCH (09:47)
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
[2017-04-04] MEDS: VANCOMYCIN 1,000 MG/NS 250 ML IV SCH ×4 (10:37→21:43)
[2017-04-04] MEDS: ENOXAPARIN SODIUM 30 MG/0.3 ML SYRINGE SQ SCH ×2 (10:37→22:44)
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
[2017-04-04] MEDS: FUROSEMIDE 20 MG/2 ML VIAL IV PUSH SCH (11:24)
[2017-04-04] MEDS: SODIUM CHLOR 0.9% 1000 ML INJ 1,000 ML IV SCH (12:17)
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
[2017-04-04] MEDS: POLYETHYLENE GLYCOL 17 GM PKG PO SCH (17:15)
[2017-04-04] MEDS ORDERED: LACTULOSE SYRUP 20 GM/30 ML CUP PO PRN (17:15)
[2017-04-04] MEDS ORDERED: BISACODYL 10 MG SUPP RECTAL ONE (17:15)
[2017-04-04] MEDS ORDERED: ARTIFICIAL TEARS OPTH SOLN 15 ML BTL EACH EYE PRN (18:00)
[2017-04-05] VITALS (11 sets, daily range): BP systolic 138–168; BP diastolic 86–108; PULSE 60–120; RESP 11–22; TEMP 96.8–98.3; O2SAT 97–100
[2017-04-05] MEDS: HALOPERIDOL LACTATE 5 MG/ML AMP IM PRN (02:30)
[2017-04-05] MEDS: PIPERACIL-TAZO 3.375 GM PREMIX 50 ML IV SCH ×2 (02:30→10:04)
[2017-04-05] MEDS: hydrALAZINE HCL 25 MG TAB PO SCH ×3 (05:33→20:00)
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
[2017-04-05] MEDS: FUROSEMIDE 20 MG/2 ML VIAL IV PUSH SCH (09:00)
[2017-04-05] MEDS: BACITRACIN TOP OINT 15 GM TUBE TOPICAL SCH ×2 (09:00→20:01)
[2017-04-05] MEDS: DOCUSATE SODIUM 50 MG/SENNA 8.6 MG TAB PO SCH ×2 (09:00→20:00)
[2017-04-05] MEDS: POLYETHYLENE GLYCOL 17 GM PKG PO SCH (09:00)
[2017-04-05] MEDS: QUEtiapine FUMARATE 25 MG TAB PO SCH (10:02)
[2017-04-05] MEDS: LISINOPRIL 20 MG TAB PO SCH (10:02)
[2017-04-05] MEDS: VANCOMYCIN 1,000 MG/NS 250 ML IV SCH ×2 (10:03)
[2017-04-05] MEDS: ENOXAPARIN SODIUM 30 MG/0.3 ML SYRINGE SQ SCH ×2 (10:04→20:01)
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
[2017-04-05] MEDS ORDERED: FENT25T T-DERMAL (14:37)
[2017-04-05] MEDS ORDERED: ENOX30P SQ (14:37)
[2017-04-05] MEDS ORDERED: POLY17S PO (14:37)
[2017-04-05] MEDS ORDERED: OXYC-392 PO (14:37)
[2017-04-05] MEDS ORDERED: LEVA750T9 PO (14:37)
[2017-04-05] MEDS ORDERED: SENN1TAB PO (14:37)
[2017-04-05] MEDS ORDERED: QUET1TAB7 PO ×2 (14:37)
[2017-04-05] MEDS ORDERED: LISI-515 PO (14:37)
[2017-04-05] MEDS ORDERED: QUET1TAB8 PO (14:37)
[2017-04-05] MEDS ORDERED: QUEtiapine FUMARATE 100 MG TAB PO SCH (21:00)
[2017-04-06] VITALS (8 sets, daily range): BP systolic 111–156; BP diastolic 72–98; PULSE 85–101; RESP 17–21; TEMP 96.2–98.8; O2SAT 95–99
[2017-04-06] MEDS: hydrALAZINE HCL 25 MG TAB PO SCH (05:49)
[2017-04-06] MEDS ORDERED: QUEtiapine FUMARATE 25 MG TAB PO SCH ×2 (08:00→14:00)
[2017-04-06 08:12] LABS: CRITICAL VALUE YES
[2017-04-06] MEDS: DOCUSATE SODIUM 50 MG/SENNA 8.6 MG TAB PO SCH (09:00)
[2017-04-06] MEDS ORDERED: LEVOFLOXACIN 750 MG TAB PO SCH (09:00)
[2017-04-06] MEDS: POLYETHYLENE GLYCOL 17 GM PKG PO SCH (09:00)
[2017-04-06] MEDS: LISINOPRIL 20 MG TAB PO SCH (09:20)
[2017-04-06] MEDS: BACITRACIN TOP OINT 15 GM TUBE TOPICAL SCH (09:43)
[2017-04-06] MEDS ORDERED: PHARMACY ORDERED LAB ONE (09:45)
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
[2017-04-06] MEDS ORDERED: SODIUM CHLOR 0.9% 1000 ML INJ 1,000 ML IV ONE (11:30)
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
[2017-04-06] MEDS: ENOXAPARIN SODIUM 30 MG/0.3 ML SYRINGE SQ SCH (14:38)
[2017-04-06] MEDS: fentaNYL 25 MCG/HR PATCH T-DERMAL SCH (14:39)
[2017-04-06] MEDS ORDERED: REMOVE OLD DURAGESIC (FENTANYL) PATCH T-DERMAL SCH (15:00)
--- NOTE | 2017-04-06 20:34 | EKG ---
Date Performed: 04/06/2017 Time Performed: 11:43:19 PTAGE: 56 years EKG: Sinus rhythm NORMAL ECG PREVIOUS TRACING : 03/24/2017 10.46 Compared to prior tracing no significant change DOCTOR: Avtar Gonzalez Interpretating Date/Time 04/06/2017 20:34:21
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
== END 2017-04-06 17:06 | DRG 963 ==
LOC: NEPI 21:07 → EDBD 21:49 → NEDH 21:49 → N03B 22:32 → N06A 03-31 12:23 → N03A 04-01 12:10 → N07A 04-05 18:19
PROVIDERS: ADMIT Surgery Trauma Surgery; ATTEND Surgery Trauma Surgery
PROC: 5A1955Z Respiratory Ventilation, Greater than 96 Consecutive Hours (ICD-10-PCS; principal; 2017-03-22)
PROC: 0BH17EZ Insertion of Endotracheal Airway into Trachea, Via Natural or Artificial Opening (ICD-10-PCS; 2017-03-22)
PROC: 0W9930Z Drainage of Right Pleural Cavity with Drainage Device, Percutaneous Approach (ICD-10-PCS; 2017-03-22)
PROC: 0HQ1XZZ Repair Face Skin, External Approach (ICD-10-PCS; 2017-03-22)
PROC: 0T9B70Z Drainage of Bladder with Drainage Device, Via Natural or Artificial Opening (ICD-10-PCS; 2017-03-22)
PROC: 6A550Z2 Pheresis of Platelets, Single (ICD-10-PCS; 2017-03-24)
PROC: 5A1945Z Respiratory Ventilation, 24-96 Consecutive Hours (ICD-10-PCS; 2017-04-01)
PROC: 0BH17EZ Insertion of Endotracheal Airway into Trachea, Via Natural or Artificial Opening (ICD-10-PCS; 2017-04-01)
DX: S06.5X5A Traumatic subdural hemorrhage with loss of consciousness greater than 24 hours with return to pre-existing conscious level, initial encounter (principal); J96.01 Acute respiratory failure with hypoxia; S27.0XXA Traumatic pneumothorax, initial encounter; J69.0 Pneumonitis due to inhalation of food and vomit; R64 Cachexia; J15.0 Pneumonia due to Klebsiella pneumoniae; S22.41XA Multiple fractures of ribs, right side, initial encounter for closed fracture; S27.321A Contusion of lung, unilateral, initial encounter; G81.94 Hemiplegia, unspecified affecting left nondominant side; S06.34 Traumatic hemorrhage of right cerebrum; S02.19XA Other fracture of base of skull, initial encounter for closed fracture; S02.80XA Fracture of other specified skull and facial bones, unspecified side, initial encounter for closed fracture; G93.89 Other specified disorders of brain; Z78.1 Physical restraint status; S01.81XA Laceration without foreign body of other part of head, initial encounter; S42.031A Displaced fracture of lateral end of right clavicle, initial encounter for closed fracture; S50.312A Abrasion of left elbow, initial encounter; I71.4 Abdominal aortic aneurysm, without rupture; Z86.73 Personal history of transient ischemic attack (TIA), and cerebral infarction without residual deficits; S02.2XXA Fracture of nasal bones, initial encounter for closed fracture; S01.112A Laceration without foreign body of left eyelid and periocular area, initial encounter; V03.10XA Pedestrian on foot injured in collision with car, pick-up truck or van in traffic accident, initial encounter; Y93.9 Activity, unspecified; Y92.410 Unspecified street and highway as the place of occurrence of the external cause; Z59.0 Homelessness; R00.1 Bradycardia, unspecified; I10 Essential (primary) hypertension; F25.9 Schizoaffective disorder, unspecified; F31.9 Bipolar disorder, unspecified; M24.532 Contracture, left wrist; S08.112A Complete traumatic amputation of left ear, initial encounter; S01.312A Laceration without foreign body of left ear, initial encounter; E78.5 Hyperlipidemia, unspecified; F01.50 Vascular dementia, unspecified severity, without behavioral disturbance, psychotic disturbance, mood disturbance, and anxiety; D18.1 Lymphangioma, any site
CPT/HCPCS: 31500; 32551; 36430; 36600; 43753; 51702; 70450; 70486; 71010; 71260; 72125; 72128; 72131; 72170; 73070; 73100; 73130; 74177; 80048; 80053; 80202; 80307; 81001; 81003; 82435; 82565; 82805; 82947; 82948; 83735; 84100; 84132; 84295; 84520; 85007; 85025; 85027; 85384; 85610; 85730; 86850; 86900; 86901; 86920; 87040; 87070; 87077; 87186; 87205; 87641; 90471; 93005; 93306; 93880; 94002; 94003; 94150; 94640; 94664; 94667; 94668; 96374; 96375; 96376; 99291; C9113; G0390; J0131; J0360; J0461; J0690; J1630; J1650; J1940; J2543; J2800; J3010; J3370; J3480; J7030; J7050; L0172; P9035; P9047; Q9967